=== PATIENT | male | born 1980 | race Caucasian/White ===

== ENCOUNTER 2018-12-11 04:04 | Observation (INO) | payer BC ==
[2018-12-11] MEDS ORDERED: Sodium Chloride 0.9% 1000 ML 1,000 ML IV STA ×2 (04:15→05:04)
[2018-12-11] MEDS ORDERED: MORPHINE SULFATE 4 MG INJ IV ONE ×2 (04:28→06:01)
[2018-12-11] MEDS ORDERED: Zofran 4 MG/2 ML VIAL IV ONE (04:28)
[2018-12-11] MEDS ORDERED: Zofran 4 MG/2 ML VIAL ONE (04:32)
[2018-12-11] MEDS ORDERED: MORPHINE SULFATE 4 MG INJ ONE ×2 (04:32→06:10)
[2018-12-11] MEDS ORDERED: Sodium Chloride 0.9% 1000 ML 1,000 ML ONE ×2 (04:32→05:58)
[2018-12-11 04:33] LABS: BASOPHIL % 0.6 % (0.0-0.4); Basophil (Absolute #) 0.04 (0-0.4); Eosinophil % 2.5 % (0.00-5.0); Eosinophil (Absolute #) 0.16 (0-0.5); Granulocyte Absolute (ANC) 4.85 (1.4-6.9); Hematocrit 50.2 % (42-50); Hemoglobin 17.5 gm/dl (12.5-18.0); Lymphocyte (Absolute #) 0.88 (1.0-4.6); Lymphocytes % 13.6 % (24.0-44.0); Mean Cell Volume 88.7 fl (78-100); Mean Corpuscular Hemoglobin 30.9 pg (26-32); Mean Corpuscular Hgb Concent. 34.9 g/dl (32-36); Mean Platelet Volume 10.3 fl (6-9.5); Monocyte (Absolute #) 0.54 (0.0-1.3); Monocytes % 8.3 % (0.0-12.0); Platelet Count 191 K/mm3 (150-450); Red Blood Count 5.66 M/mm3 (4.1-5.6); Red Cell Distribution Width 12.2 % (11.5-14.0); White Blood Count 6.5 K/mm3 (4.0-10.5)
--- NOTE | 2018-12-11 04:33 | ERPHSYRPT ---
- History of Present Illness Time Seen by Provider: 12/11/18 04:29 Historian: patient Exam Limitations: no limitations Patient Subjective Stated Complaint: pt is alert and oriented. pt is ambulatory with a steady gait. pt comes in with c/o lower abd and lower back pain. pt states that he has had this pain the last several days and that it has gotten progressively worse. pt states that the has had some trouble and pain while trying to move his bowels. pt states that he is only able to go a small amount and that it is difficult to go. pt states that he has has more flatulence than normal as well. pt bowel sounds normoactive x4. pt skin is pwd. no obvious trauma. pt denies difficulty urinating. Triage Nursing Assessment: see above Physician History: This is a 38-year-old white male with history of high blood pressure, diverticulitis, anxiety, depression, polycystic kidney disease, benign kidney tumor Patient arrives with complaint of lower abdominal pain radiating to his back symptoms for 2-3 days he denies any vomiting any dysuria Past medical history includes high blood pressure, diverticulitis, anxiety, depression, polycystic kidney disease, benign kidney tumor Past surgical history includes hernia repair, orthopedic surgery, patient states he's had a appendectomy Social history includes chewing tobacco denies drug or alcohol use. Timing/Duration: day(s) (2-3 days) Activities at Onset: none Quality: aching, cramping Abdominal Pain Onset Location: suprapubic, other (bilateral lower back) Pain Radiation: back (bilateral lower back) Severity of Pain-Max: moderate Severity of Pain-Current: moderate Modifying Factors: Improves With: nothing Associated Symptoms: back, No chest pain, No diaphoresis, No diarrhea, No fever/ chills, No fatigue, No headache, No heartburn, No loss of appetite, No nausea, No neck pain, No rash, No shortness of breath, No syncope, No testicular pain, No vomiting, No weakness Previous symptoms: other (patient with history of polycystic kidney disease and abdominal pain in the past) Allergies/Adverse Reactions: No Known Drug Allergies Allergy (Verified 09/17/15 16:31) Home Medications: Clonazepam [Klonopin] 2 mg PO HS 08/04/15 [History] Lisinopril 40 mg PO DAILY 08/20/15 [History] Trazodone HCl 150 mg PO HS 08/20/15 [History] Hx Tetanus, Diphtheria Vaccination/Date Given: Yes Hx Influenza Vaccination/Date Given: No Hx Pneumococcal Vaccination/Date Given: No Immunizations Up to Date: Yes - Review of Systems Constitutional: No Fever, No Chills Eyes: No Symptoms Ears, Nose, & Throat: No Symptoms Respiratory: No Cough, No Dyspnea Cardiac: No Chest Pain, No Edema, No Syncope Abdominal/Gastrointestinal: Abdominal Pain, No Nausea, No Vomiting, No Diarrhea , No Constipation, No Hematemesis, No Hematochezia, No Melena, No Dysphagia, No Appetite Changes Genitourinary Symptoms: No Dysuria Musculoskeletal: No Back Pain, No Neck Pain Skin: No Rash Neurological: No Dizziness, No Focal Weakness, No Sensory Changes Psychological: No Symptoms Endocrine: No Symptoms All Other Systems: Reviewed and Negative - Past Medical History Pertinent Past Medical History: Yes Neurological History: No Pertinent History ENT History: No Pertinent History Cardiac History: Hypertension Respiratory History: No Pertinent History Endocrine Medical History: No Pertinent History Musculoskeletal History: No Pertinent History GI Medical History: Diverticulitis, Hernia History: Other Psycho-Social History: Anxiety, Depression Male Reproductive Disorders: No Pertinent History Other Medical History: blood in urine, scope 06/2015. polycystic kidney disease. BENIGN KIDNEY TUMOR - Past Surgical History Past Surgical History: Yes Neuro Surgical History: No Pertinent History Cardiac: No Pertinent History Respiratory: No Pertinent History Gastrointestinal: Appendectomy, Hernia Repair Genitourinary: No Pertinent History, Other Musculoskeletal: Orthopedic Surgery Male Surgical History: No Pertinent History Other Surgical History: hand. hernia repair x 2, urinary scope with stent - Social History Smoking Status: Never smoker Exposure to second hand smoke: No Drug Use: none Patient Lives Alone: No - Nursing Vital Signs Nursing Vital Signs: Initial Vital Signs Pulse Rate 69 12/11/18 04:04 Respiratory Rate 18 12/11/18 04:04 Blood Pressure 140/89 12/11/18 04:04 O2 Sat by Pulse Oximetry 99 12/11/18 04:04 Pain Scale Pain Intensity 7 - Physical Exam General Appearance: no apparent distress, alert Eye Exam: PERRL/EOMI, eyes nml inspection Ears, Nose, Throat Exam: normal ENT inspection, pharynx normal, moist mucous membranes Neck Exam: normal inspection, non-tender, supple, full range of motion Respiratory Exam: normal breath sounds, lungs clear, No respiratory distress Cardiovascular Exam: regular rate/rhythm, normal heart sounds, capillary refill <2 sec Gastrointestinal/Abdomen Exam: soft, normal bowel sounds, tenderness ( suprapubic tenderness) Back Exam: normal inspection, normal range of motion, No CVA tenderness, No vertebral tenderness Extremity Exam: normal inspection, normal range of motion, pelvis stable Neurologic Exam: alert, oriented x 3, cooperative, flyer builder II-XII nml as tested, normal mood/affect, nml cerebellar function, sensation nml, No motor deficits Skin Exam: normal color, warm, dry SpO2 Interpretation: normal (99%) SpO2: 99 - Course Nursing assessment & vital signs reviewed: Yes - CT Exams Abdomen/Pelvis CT Interpretation: Tele-radiologist Report (CT abdomen and pelvis: Left lower corner of mild to moderate sigmoid diverticulitis) Ordered Tests: Active Orders 24 hr Category Date Time Status IV Insertion STAT Care 12/11/18 04:15 Active ABDOMEN AND PELVIS W/0 CONTRAS [CT] Stat Exams 12/11/18 04:33 Taken AMYLASE Stat Lab 12/11/18 04:29 Completed CBC W DIFF Stat Lab 12/11/18 04:29 Completed CMP Stat Lab 12/11/18 04:29 Completed LIPASE Stat Lab 12/11/18 04:29 Completed UA W/RFX UR CULTURE Stat Lab 12/11/18 05:18 Completed Urine Triage Profile Stat Lab 12/11/18 05:18 Completed Medication Summary Generic Name Dose Route Start Last Admin Trade Name Freq PRN Reason Stop Dose Admin Levofloxacin/Dextrose 750 mg in 150 mls @ 100 mls/hr 12/11/18 06:21 Levofloxacin 750mg/150ml D5w IV 12/11/18 07:50 STAT STA Discontinued Medications Generic Name Dose Route Start Last Admin Trade Name Freq PRN Reason Stop Dose Admin Sodium Chloride 1,000 mls @ 999 mls/hr 12/11/18 04:15 12/11/18 04:35 Sodium Chloride 0.9% 1000 Ml IV 12/11/18 05:15 999 mls/hr .Q1H1M STA Administration Sodium Chloride Confirm 12/11/18 04:32 Sodium Chloride 0.9% 1000 Ml Administered 12/11/18 04:33 Dose 1,000 mls @ ud .ROUTE .STK-MED ONE Sodium Chloride 1,000 mls @ 999 mls/hr 12/11/18 05:04 12/11/18 06:03 Sodium Chloride 0.9% 1000 Ml IV 12/11/18 06:04 999 mls/hr .Q1H1M STA Administration Sodium Chloride Confirm 12/11/18 05:58 Sodium Chloride 0.9% 1000 Ml Administered 12/11/18 05:59 Dose 1,000 mls @ ud .ROUTE .STK-MED ONE Morphine Sulfate 4 mg 12/11/18 04:28 12/11/18 04:34 Morphine Sulfate 4 Mg Inj IV 12/11/18 04:29 4 mg STAT ONE Administration Morphine Sulfate Confirm 12/11/18 04:32 Morphine Sulfate 4 Mg Inj Administered 12/11/18 04:33 Dose 4 mg .ROUTE .STK-MED ONE Morphine Sulfate 4 mg 12/11/18 06:01 12/11/18 06:04 Morphine Sulfate 4 Mg Inj IV 12/11/18 06:02 4 mg STAT ONE Administration Morphine Sulfate Confirm 12/11/18 06:10 Morphine Sulfate 4 Mg Inj Administered 12/11/18 06:11 Dose 4 mg .ROUTE .STK-MED ONE Ondansetron HCl 4 mg 12/11/18 04:28 12/11/18 04:35 Zofran 4 Mg/2 Ml Vial IV 12/11/18 04:29 4 mg STAT ONE Administration Ondansetron HCl Confirm 12/11/18 04:32 Zofran 4 Mg/2 Ml Vial Administered 12/11/18 04:33 Dose 4 mg .ROUTE .STK-MED ONE Lab/Rad Data: Laboratory Result Diagrams 12/11/18 04:29 12/11/18 04:29 Laboratory Results 12/11/18 12/11/18 12/11/18 Range/Units 05:18 05:18 04:29 WBC (4.0-10.5) K/mm3 RBC (4.1-5.6) M/mm3 Hgb (12.5-18.0) gm/dl Hct (42-50) % MCV (78-100) fl MCH (26-32) pg MCHC (32-36) g/dl RDW (11.5-14.0) % Plt Count (150-450) K/mm3 MPV (6-9.5) fl Gran % (36.0-66.0) % Eos # (Auto) (0-0.5) Absolute Lymphs (auto) (1.0-4.6) Absolute Monos (auto) (0.0-1.3) Lymphocytes % (24.0-44.0) % Monocytes % (0.0-12.0) % Eosinophils % (0.00-5.0) % Basophils % (0.0-0.4) % Absolute Granulocytes (1.4-6.9) Basophils # (0-0.4) Sodium 138 (137-145) mmol/L Potassium 3.9 (3.5-5.1) mmol/L Chloride 102 (98-107) mmol/L Carbon Dioxide 29 (22-30) mmol/L Anion Gap 10.9 (5-15) MEQ/L BUN 22 H (9-20) mg/dL Creatinine 1.36 H (0.66-1.25) mg/dL Estimated GFR > 60.0 ML/MIN Glucose 112 H (74-106) mg/dL Calcium 9.6 (8.4-10.2) mg/dL Total Bilirubin 1.00 (0.2-1.3) mg/dL AST 19 (17-59) U/L ALT 17 (0-50) U/L Alkaline Phosphatase 65 (38-126) U/L Serum Total Protein 7.5 (6.3-8.2) g/dL Albumin 4.5 (3.5-5.0) g/dL Amylase 77 (30-110) U/L Lipase 147 (23-300) U/L Urine Color YELLOW (YELLOW) Urine Appearance CLEAR (CLEAR) Urine pH 5.0 (5-6) Ur Specific [place] 1.020 (1.005-1.025) Urine Protein NEGATIVE (Negative) Urine Ketones NEGATIVE (NEGATIVE) Urine Blood NEGATIVE (0-5) Fredo/ul Urine Nitrite NEGATIVE (NEGATIVE) Urine Bilirubin NEGATIVE (NEGATIVE) Urine Urobilinogen 2 (0-1) mg/dL Ur Leukocyte Esterase NEGATIVE (NEGATIVE) Urine WBC (Auto) NONE (0-5) /HPF Urine RBC (Auto) NONE (0-2) /HPF U Epithel Cells (Auto) NONE (FEW) /HPF Urine Bacteria (Auto) NONE SEEN (NEGATIVE) /HPF Urine Mucus (Auto) SLIGHT (NEGATIVE) /HPF Urine Culture Reflexed NO (NO) Urine Glucose NEGATIVE (NEGATIVE) mg/dL Urine Opiates Level NEGATIVE (NEGATIVE) Ur Methadone NEGATIVE (NEGATIVE) Urine Barbiturates NEGATIVE (NEGATIVE) Ur Phencyclidine (PCP) NEGATIVE (NEGATIVE) Urine Amphetamine NEGATIVE (NEGATIVE) U Benzodiazepine Level NEGATIVE (NEGATIVE) Urine Cocaine NEGATIVE (NEGATIVE) Urine Marijuana (THC) NEGATIVE (NEGATIVE) 12/11/18 Range/Units 04:29 WBC 6.5 (4.0-10.5) K/mm3 RBC 5.66 H (4.1-5.6) M/mm3 Hgb 17.5 (12.5-18.0) gm/dl Hct 50.2 H (42-50) % MCV 88.7 (78-100) fl MCH 30.9 (26-32) pg MCHC 34.9 (32-36) g/dl RDW 12.2 (11.5-14.0) % Plt Count 191 (150-450) K/mm3 MPV 10.3 H (6-9.5) fl Gran % 75.0 H (36.0-66.0) % Eos # (Auto) 0.16 (0-0.5) Absolute Lymphs (auto) 0.88 L (1.0-4.6) Absolute Monos (auto) 0.54 (0.0-1.3) Lymphocytes % 13.6 L (24.0-44.0) % Monocytes % 8.3 (0.0-12.0) % Eosinophils % 2.5 (0.00-5.0) % Basophils % 0.6 (0.0-0.4) % Absolute Granulocytes 4.85 (1.4-6.9) Basophils # 0.04 (0-0.4) Sodium (137-145) mmol/L Potassium (3.5-5.1) mmol/L Chloride (98-107) mmol/L Carbon Dioxide (22-30) mmol/L Anion Gap (5-15) MEQ/L BUN (9-20) mg/dL Creatinine (0.66-1.25) mg/dL Estimated GFR ML/MIN Glucose (74-106) mg/dL Calcium (8.4-10.2) mg/dL Total Bilirubin (0.2-1.3) mg/dL AST (17-59) U/L ALT (0-50) U/L Alkaline Phosphatase (38-126) U/L Serum Total Protein (6.3-8.2) g/dL Albumin (3.5-5.0) g/dL Amylase (30-110) U/L Lipase (23-300) U/L Urine Color (YELLOW) Urine Appearance (CLEAR) Urine pH (5-6) Ur Specific [place] (1.005-1.025) Urine Protein (Negative) Urine Ketones (NEGATIVE) Urine Blood (0-5) Fredo/ul Urine Nitrite (NEGATIVE) Urine Bilirubin (NEGATIVE) Urine Urobilinogen (0-1) mg/dL Ur Leukocyte Esterase (NEGATIVE) Urine WBC (Auto) (0-5) /HPF Urine RBC (Auto) (0-2) /HPF U Epithel Cells (Auto) (FEW) /HPF Urine Bacteria (Auto) (NEGATIVE) /HPF Urine Mucus (Auto) (NEGATIVE) /HPF Urine Culture Reflexed (NO) Urine Glucose (NEGATIVE) mg/dL Urine Opiates Level (NEGATIVE) Ur Methadone (NEGATIVE) Urine Barbiturates (NEGATIVE) Ur Phencyclidine (PCP) (NEGATIVE) Urine Amphetamine (NEGATIVE) U Benzodiazepine Level (NEGATIVE) Urine Cocaine (NEGATIVE) Urine Marijuana (THC) (NEGATIVE) - Progress Progress: improved Progress Note: 12/11/18 06:22 Patient with mild/moderate sigmoid diverticulosis on CT abdomen Patient still with pain in his received normal saline 1 L morphine 4 mg IV x2 and Zofran. Discuss case with Dr. Triplett will place patient on observation start patient on Levaquin and Flagyl continue IV morphine. . - Departure Departure Disposition: Observation Clinical Impression: Diverticulitis Abdominal pain Qualifiers: Abdominal location: left lower quadrant Qualified Code(s): R10.32 - Left lower quadrant pain Condition: Fair Critical Care Time: No Referrals: BRANDIN MARTELL NP [Primary Care Provider] -
[2018-12-11 05:00] LABS: ALBUMIN 4.5 g/dL (3.5-5.0); ALKALINE PHOSPHATASE 65 U/L (38-126); AMYLASE 77 U/L (30-110); ANION GAP 10.9 MEQ/L (5-15); BLOOD UREA NITROGEN 22 mg/dL (9-20); CHLORIDE 102 mmol/L (98-107); Calcium 9.6 mg/dL (8.4-10.2); Carbon Dioxide 29 mmol/L (22-30); Creatinine 1 1.36 mg/dL (0.66-1.25); Glucose 112 mg/dL (74-106); LIPASE 147 U/L (23-300); Potassium 3.9 mmol/L (3.5-5.1); SGOT/AST 19 U/L (17-59); SGPT/ALT 17 U/L (0-50); SODIUM 138 mmol/L (137-145); Total Protein 7.5 g/dL (6.3-8.2)
[2018-12-11 05:24] LABS: Appearance CLEAR (CLEAR); Bilirubin NEGATIVE (NEGATIVE); Blood NEGATIVE Ery/ul (0-5); Glucose NEGATIVE (NEGATIVE); Ketones NEGATIVE (NEGATIVE); Leukocyte Esterase NEGATIVE (NEGATIVE); Mucus SLIGHT /HPF (NEGATIVE); Nitrite NEGATIVE (NEGATIVE); Protein,Urine Dip NEGATIVE (Negative); Urobilinogen 2 mg/dL (0-1)
[2018-12-11 05:36] LABS: Bacteria NONE SEEN /HPF (NEGATIVE)
[2018-12-11 05:39] LABS: Amphetamine,Urine NEGATIVE (NEGATIVE); Barbiturate,Urine NEGATIVE (NEGATIVE); Benzodiazepine,Urine NEGATIVE (NEGATIVE); Cocaine,Urine NEGATIVE (NEGATIVE); Methadone,Urine NEGATIVE (NEGATIVE); Opiate,Urine NEGATIVE (NEGATIVE); PCP,Urine NEGATIVE (NEGATIVE); THC,Urine NEGATIVE (NEGATIVE)
[2018-12-11] MEDS ORDERED: LEVOFLOXACIN 750MG/150ML D5W 750 MG/150 ML BAG IV STA (06:21)
[2018-12-11] MEDS ORDERED: LEVOFLOXACIN 750MG/150ML D5W 750 MG/150 ML BAG IV ONE (06:34)
[2018-12-11] MEDS ORDERED: MORPHINE SULFATE 4 MG INJ IV PRN (07:15)
[2018-12-11] MEDS ORDERED: Phenergan 25 MG INJ IM PRN (07:15)
[2018-12-11] MEDS: LEVOFLOXACIN 750MG/150ML D5W 750 MG/150 ML BAG IV SCH (07:30)
[2018-12-11] MEDS: Sodium Chloride 0.9% 1000 ML 1,000 ML IV SCH ×2 (07:30→17:30)
--- NOTE | 2018-12-11 09:14 | PCM.HP ---
History of Present Illness - Chief Complaint Chief Complaint: llq abdominal pain History of Present Illness: is a 38 year old male who presented to the ER early this morning with severe LLQ pain, started 2 days ago and got to the point it was severe so came to ER, no fever, no vomiting, no diarrhea or blood in the stool. he has had diverticulitis in the past. - Review of Systems Constitutional: No Fever, No Chills Eyes: No Symptoms Respiratory: No Cough, No Short Of Breath Cardiac: No Chest Pain, No Edema, No Syncope Abdominal/Gastrointestinal: Abdominal Pain, No Nausea, No Vomiting, No Diarrhea , No Constipation Genitourinary Symptoms: No Dysuria Skin: No Rash All Other Systems: Reviewed and Negative Medications & Allergies Home Medications: Home Medication List Clonazepam [Klonopin] 2 mg PO HS 08/04/15 [History Confirmed 12/11/18] Lisinopril 40 mg PO DAILY 08/20/15 [History Confirmed 12/11/18] Trazodone HCl 150 mg PO HS 08/20/15 [History Confirmed 12/11/18] Allergies/Adverse Reactions: Allergies Allergy/AdvReac Type Severity Reaction Status Date / Time No Known Drug Allergies Allergy Verified 09/17/15 16:31 - Past Medical History Past Medical History: Yes Neurological History: No Pertinent History ENT History: No Pertinent History Cardiac History: Hypertension Respiratory History: No Pertinent History Endocrine Medical History: No Pertinent History Musculoskelatal History: No Pertinent History GI Medical History: Diverticulitis, Hernia History: Other Pyscho-Social History: Anxiety, Depression Male Reproductive Disorders: No Pertinent History Comment: blood in urine, scope 06/2015. polycystic kidney disease. BENIGN KIDNEY TUMOR. C-DIFF - Past Surgical History Past Surgical History: Yes Neuro Surgical History: No Pertinent History Cardiac History: No Pertinent History Respiratory Surgery: No Pertinent History GI Surgical History: Appendectomy, Hernia Repair Genitourinary Surgical Hx: No Pertinent History, Other Musculskeletal Surgical Hx: Orthopedic Surgery Male Surgical History: No Pertinent History Other Surgical History: hand. hernia repair x 2, urinary scope with stent - Social History Smoking Status: Never smoker Exposure to second hand smoke: No Alcohol: Rarely Drug Use: none - Physical Exam Vital Signs: Vital Signs - 24 hr Temp Pulse Resp BP Pulse Ox 12/11/18 07:15 97.6 F 86 18 129/78 98 12/11/18 06:24 99 12/11/18 05:50 72 17 113/59 97 12/11/18 05:44 78 18 112/77 97 12/11/18 04:54 72 18 113/59 99 12/11/18 04:04 69 18 140/89 99 General Appearance: no apparent distress Neurologic Exam: alert, oriented x 3 Ears, Nose, Throat Exam: normal ENT inspection, TMs normal, pharynx normal, moist mucous membranes Respiratory Exam: normal breath sounds, lungs clear, No respiratory distress Cardiovascular Exam: regular rate/rhythm, normal heart sounds, normal peripheral pulses Gastrointestinal/Abdomen Exam: tenderness (LLQ), No distention, No guarding, No rebound Extremity Exam: normal inspection, normal range of motion, pelvis stable Skin Exam: normal color, warm, dry, No rash Results - Labs Lab/Micro Results: Lab Results-Last 24 Hours 12/11/18 12/11/18 12/11/18 Range/Units 04:29 04:29 05:18 WBC 6.5 (4.0-10.5) K/mm3 RBC 5.66 H (4.1-5.6) M/mm3 Hgb 17.5 (12.5-18.0) gm/dl Hct 50.2 H (42-50) % MCV 88.7 (78-100) fl MCH 30.9 (26-32) pg MCHC 34.9 (32-36) g/dl RDW 12.2 (11.5-14.0) % Plt Count 191 (150-450) K/mm3 MPV 10.3 H (6-9.5) fl Gran % 75.0 H (36.0-66.0) % Eos # (Auto) 0.16 (0-0.5) Absolute Lymphs (auto) 0.88 L (1.0-4.6) Absolute Monos (auto) 0.54 (0.0-1.3) Lymphocytes % 13.6 L (24.0-44.0) % Monocytes % 8.3 (0.0-12.0) % Eosinophils % 2.5 (0.00-5.0) % Basophils % 0.6 (0.0-0.4) % Absolute Granulocytes 4.85 (1.4-6.9) Basophils # 0.04 (0-0.4) Sodium 138 (137-145) mmol/L Potassium 3.9 (3.5-5.1) mmol/L Chloride 102 (98-107) mmol/L Carbon Dioxide 29 (22-30) mmol/L Anion Gap 10.9 (5-15) MEQ/L BUN 22 H (9-20) mg/dL Creatinine 1.36 H (0.66-1.25) mg/dL Estimated GFR > 60.0 ML/MIN Glucose 112 H (74-106) mg/dL Calcium 9.6 (8.4-10.2) mg/dL Total Bilirubin 1.00 (0.2-1.3) mg/dL AST 19 (17-59) U/L ALT 17 (0-50) U/L Alkaline Phosphatase 65 (38-126) U/L Serum Total Protein 7.5 (6.3-8.2) g/dL Albumin 4.5 (3.5-5.0) g/dL Amylase 77 (30-110) U/L Lipase 147 (23-300) U/L Urine Color YELLOW (YELLOW) Urine Appearance CLEAR (CLEAR) Urine pH 5.0 (5-6) Ur Specific [place] 1.020 (1.005-1.025) Urine Protein NEGATIVE (Negative) Urine Ketones NEGATIVE (NEGATIVE) Urine Blood NEGATIVE (0-5) Fredo/ul Urine Nitrite NEGATIVE (NEGATIVE) Urine Bilirubin NEGATIVE (NEGATIVE) Urine Urobilinogen 2 (0-1) mg/dL Ur Leukocyte Esterase NEGATIVE (NEGATIVE) Urine WBC (Auto) NONE (0-5) /HPF Urine RBC (Auto) NONE (0-2) /HPF U Epithel Cells (Auto) NONE (FEW) /HPF Urine Bacteria (Auto) NONE SEEN (NEGATIVE) /HPF Urine Mucus (Auto) SLIGHT (NEGATIVE) /HPF Urine Culture Reflexed NO (NO) Urine Glucose NEGATIVE (NEGATIVE) mg/dL Urine Opiates Level (NEGATIVE) Ur Methadone (NEGATIVE) Urine Barbiturates (NEGATIVE) Ur Phencyclidine (PCP) (NEGATIVE) Urine Amphetamine (NEGATIVE) U Benzodiazepine Level (NEGATIVE) Urine Cocaine (NEGATIVE) Urine Marijuana (THC) (NEGATIVE) 12/11/18 Range/Units 05:18 WBC (4.0-10.5) K/mm3 RBC (4.1-5.6) M/mm3 Hgb (12.5-18.0) gm/dl Hct (42-50) % MCV (78-100) fl MCH (26-32) pg MCHC (32-36) g/dl RDW (11.5-14.0) % Plt Count (150-450) K/mm3 MPV (6-9.5) fl Gran % (36.0-66.0) % Eos # (Auto) (0-0.5) Absolute Lymphs (auto) (1.0-4.6) Absolute Monos (auto) (0.0-1.3) Lymphocytes % (24.0-44.0) % Monocytes % (0.0-12.0) % Eosinophils % (0.00-5.0) % Basophils % (0.0-0.4) % Absolute Granulocytes (1.4-6.9) Basophils # (0-0.4) Sodium (137-145) mmol/L Potassium (3.5-5.1) mmol/L Chloride (98-107) mmol/L Carbon Dioxide (22-30) mmol/L Anion Gap (5-15) MEQ/L BUN (9-20) mg/dL Creatinine (0.66-1.25) mg/dL Estimated GFR ML/MIN Glucose (74-106) mg/dL Calcium (8.4-10.2) mg/dL Total Bilirubin (0.2-1.3) mg/dL AST (17-59) U/L ALT (0-50) U/L Alkaline Phosphatase (38-126) U/L Serum Total Protein (6.3-8.2) g/dL Albumin (3.5-5.0) g/dL Amylase (30-110) U/L Lipase (23-300) U/L Urine Color (YELLOW) Urine Appearance (CLEAR) Urine pH (5-6) Ur Specific [place] (1.005-1.025) Urine Protein (Negative) Urine Ketones (NEGATIVE) Urine Blood (0-5) Fredo/ul Urine Nitrite (NEGATIVE) Urine Bilirubin (NEGATIVE) Urine Urobilinogen (0-1) mg/dL Ur Leukocyte Esterase (NEGATIVE) Urine WBC (Auto) (0-5) /HPF Urine RBC (Auto) (0-2) /HPF U Epithel Cells (Auto) (FEW) /HPF Urine Bacteria (Auto) (NEGATIVE) /HPF Urine Mucus (Auto) (NEGATIVE) /HPF Urine Culture Reflexed (NO) Urine Glucose (NEGATIVE) mg/dL Urine Opiates Level NEGATIVE (NEGATIVE) Ur Methadone NEGATIVE (NEGATIVE) Urine Barbiturates NEGATIVE (NEGATIVE) Ur Phencyclidine (PCP) NEGATIVE (NEGATIVE) Urine Amphetamine NEGATIVE (NEGATIVE) U Benzodiazepine Level NEGATIVE (NEGATIVE) Urine Cocaine NEGATIVE (NEGATIVE) Urine Marijuana (THC) NEGATIVE (NEGATIVE) - Radiology Impressions Radiology Exams & Impressions: Radiology Procedures Category Date Time Status ABDOMEN AND PELVIS W/0 CONTRAS [CT] Stat Exams 12/11/18 04:33 Taken Assessment/Plan (1) Diverticulitis Current Visit: Yes Status: Acute Assessment & Plan: continue levaquin and flagyl, clear liquids. pain control and will advance diet as tolerated Code(s): K57.92 - DVTRCLI OF INTEST, PART UNSP, W/O PERF OR ABSCESS W/O BLEED
--- NOTE | 2018-12-11 09:41 | XRAY ---
Indication: Abdomen pain 2 days. Multiple contiguous axial images obtained through the abdomen and pelvis without contrast as ordered. Comparison: May 10, 2016. Lung bases are clear. Heart is not enlarged. Stomach is mildly fluid distended. Noncontrasted stomach and bowel loops appear nonobstructed. Again previous appendectomy. There remains diffuse scattered colonic diverticulosis with new mild focus of diverticulitis in the distal descending/proximal sigmoid colon. No free fluid/air. Stable bilateral polycystic kidneys with a few again appearing hemorrhagic/proteinaceous. Also stable nonobstructing bilateral renal micro-calculi/calcifications. No hydronephrosis or hydroureter. Stable hepatic cysts. Remaining liver, gallbladder, pancreas, spleen, adrenal glands, bladder, and aorta appear unremarkable for noncontrast exam. Osseous structures intact. Impression: 1. Again colonic diverticulosis with new mild diverticulitis in the distal descending/proximal sigmoid colon. No complications. 2. Stable polycystic kidneys with calculi/calcifications and hepatic cysts. Comment: Preliminary interpretation was made by [facility]. No discrepancy. CT DI 18.08
[2018-12-11] MEDS ORDERED: NON-FORMULARY ITEM (Lisinopril [Lisinopril] 40 MG) PO SCH (10:00)
[2018-12-11] MEDS: DILAUDID 2 MG INJECTION IV PRN ×3 (10:12→20:08)
[2018-12-11] MEDS: FLAGYL 500 MG IVPB 500 MG/100 ML BAG IV SCH ×3 (11:56→23:49)
[2018-12-11] MEDS ORDERED: NON-FORMULARY ITEM (Trazodone Hcl [Trazodone Hcl] 150 MG) PO SCH (22:00)
[2018-12-12] MEDS: Desyrel 150 MG PO SCH (00:29)
[2018-12-12] MEDS: DILAUDID 2 MG INJECTION IV PRN ×5 (00:29→20:48)
[2018-12-12] MEDS: Sodium Chloride 0.9% 1000 ML 1,000 ML IV SCH ×2 (03:19→15:01)
[2018-12-12] MEDS: FLAGYL 500 MG IVPB 500 MG/100 ML BAG IV SCH ×3 (05:47→18:10)
[2018-12-12 05:55] LABS: BASOPHIL % 0.8 % (0.0-0.4); Basophil (Absolute #) 0.03 (0-0.4); Eosinophil % 2.8 % (0.00-5.0); Eosinophil (Absolute #) 0.11 (0-0.5); Granulocyte Absolute (ANC) 2.45 (1.4-6.9); Granulocytes % 63.5 % (36.0-66.0); Hematocrit 44.4 % (42-50); Lymphocyte (Absolute #) 0.89 (1.0-4.6); Lymphocytes % 23.1 % (24.0-44.0); Mean Cell Volume 89.7 fl (78-100); Mean Corpuscular Hemoglobin 30.3 pg (26-32); Mean Corpuscular Hgb Concent. 33.8 g/dl (32-36); Monocyte (Absolute #) 0.38 (0.0-1.3); Monocytes % 9.8 % (0.0-12.0); Platelet Count 170 K/mm3 (150-450); Red Blood Count 4.95 M/mm3 (4.1-5.6); White Blood Count 3.9 K/mm3 (4.0-10.5)
[2018-12-12 06:07] LABS: ALBUMIN 3.5 g/dL (3.5-5.0); ALKALINE PHOSPHATASE 52 U/L (38-126); ANION GAP 8.8 MEQ/L (5-15); BLOOD UREA NITROGEN 12 mg/dL (9-20); CHLORIDE 105 mmol/L (98-107); Calcium 8.7 mg/dL (8.4-10.2); Carbon Dioxide 28 mmol/L (22-30); Creatinine 1 1.15 mg/dL (0.66-1.25); Glucose 88 mg/dL (74-106); Potassium 4.3 mmol/L (3.5-5.1); SGOT/AST 17 U/L (17-59); SGPT/ALT 13 U/L (0-50); SODIUM 138 mmol/L (137-145); Total Protein 6.3 g/dL (6.3-8.2)
--- NOTE | 2018-12-12 09:44 | PCM.NOTE ---
Date and Time: 12/12/18942 Subjective Assessment: patient still having soreness in LLQ, tolerating clears without issue. c/o some gas, thinks pain has improved some Objective Exam General Appearance: no apparent distress, alert Skin Exam: normal color, warm, dry Respiratory Exam: normal breath sounds, lungs clear, No respiratory distress Cardiovascular Exam: regular rate/rhythm, normal heart sounds Gastrointestinal/Abdomen Exam: soft, normal bowel sounds, tenderness (LLQ) Extremity Exam: normal inspection, normal range of motion OBJECTIVE DATA Vital Signs: Vital Signs - 24 hr Temp Pulse Resp BP Pulse Ox 12/12/18 07:45 97 12/12/18 07:00 97.8 F 84 17 129/71 97 12/12/18 03:43 97.4 F 73 16 105/72 94 L 12/11/18 23:00 98.2 F 80 16 133/81 96 12/11/18 20:38 94 L 12/11/18 19:18 98.7 F 82 17 134/88 97 12/11/18 17:22 99 12/11/18 15:00 98.7 F 77 16 135/88 99 12/11/18 11:15 98.1 F 76 18 120/73 96 Pain Assessment - Last Documented Pain Intensity 5 Pain Scale Used 0-10 Pain Scale Intake and Output: Intake & Output 12/09/18 12/10/18 12/11/18 12/12/18 11:59 11:59 11:59 11:59 Intake Total 540 3730 Output Total 5150 Balance 540 -1420 Weight 86.3 kg 85.7 kg Lab Results: Lab Results-Last 24 Hours 12/12/18 12/12/18 Range/Units 05:44 05:44 WBC 3.9 L (4.0-10.5) K/mm3 RBC 4.95 (4.1-5.6) M/mm3 Hgb 15.0 (12.5-18.0) gm/dl Hct 44.4 (42-50) % MCV 89.7 (78-100) fl MCH 30.3 (26-32) pg MCHC 33.8 (32-36) g/dl RDW 12.0 (11.5-14.0) % Plt Count 170 (150-450) K/mm3 MPV 10.0 H (6-9.5) fl Gran % 63.5 (36.0-66.0) % Eos # (Auto) 0.11 (0-0.5) Absolute Lymphs (auto) 0.89 L (1.0-4.6) Absolute Monos (auto) 0.38 (0.0-1.3) Lymphocytes % 23.1 L (24.0-44.0) % Monocytes % 9.8 (0.0-12.0) % Eosinophils % 2.8 (0.00-5.0) % Basophils % 0.8 (0.0-0.4) % Absolute Granulocytes 2.45 (1.4-6.9) Basophils # 0.03 (0-0.4) Sodium 138 (137-145) mmol/L Potassium 4.3 (3.5-5.1) mmol/L Chloride 105 (98-107) mmol/L Carbon Dioxide 28 (22-30) mmol/L Anion Gap 8.8 (5-15) MEQ/L BUN 12 (9-20) mg/dL Creatinine 1.15 (0.66-1.25) mg/dL Estimated GFR > 60.0 ML/MIN Glucose 88 (74-106) mg/dL Calcium 8.7 (8.4-10.2) mg/dL Total Bilirubin 0.90 (0.2-1.3) mg/dL AST 17 (17-59) U/L ALT 13 (0-50) U/L Alkaline Phosphatase 52 (38-126) U/L Serum Total Protein 6.3 (6.3-8.2) g/dL Albumin 3.5 (3.5-5.0) g/dL Radiology Exams: Radiology Procedures Category Date Time Status ABDOMEN AND PELVIS W/0 CONTRAS [CT] Stat Exams 12/11/18 04:33 Completed Assessment/Plan (1) Diverticulitis Current Visit: Yes Status: Acute Assessment & Plan: continue levaquin and flagyl, advance diet. home when able to transition to po pain meds with good po intake Code(s): K57.92 - DVTRCLI OF INTEST, PART UNSP, W/O PERF OR ABSCESS W/O BLEED
[2018-12-12] MEDS: Zestril 20 MG PO SCH (09:59)
[2018-12-12] MEDS: LEVOFLOXACIN 750MG/150ML D5W 750 MG/150 ML BAG IV SCH (09:59)
[2018-12-12] MEDS: Zofran 4 MG/2 ML VIAL IV PRN ×2 (12:49→16:46)
[2018-12-13] MEDS: Desyrel 150 MG PO SCH ×2 (00:17→23:56)
[2018-12-13] MEDS: FLAGYL 500 MG IVPB 500 MG/100 ML BAG IV SCH ×5 (00:18→23:56)
[2018-12-13] MEDS: Sodium Chloride 0.9% 1000 ML 1,000 ML IV SCH ×2 (00:18→15:08)
[2018-12-13] MEDS ORDERED: Phenergan 25 MG INJ IV PRN (01:06)
[2018-12-13] MEDS: DILAUDID 2 MG INJECTION IV PRN ×4 (01:20→20:25)
[2018-12-13 05:51] LABS: BASOPHIL % 0.6 % (0.0-0.4); Basophil (Absolute #) 0.03 (0-0.4); Eosinophil % 4.3 % (0.00-5.0); Granulocyte Absolute (ANC) 2.92 (1.4-6.9); Granulocytes % 62.7 % (36.0-66.0); Hematocrit 45.3 % (42-50); Hemoglobin 15.6 gm/dl (12.5-18.0); Lymphocytes % 21.5 % (24.0-44.0); Mean Corpuscular Hemoglobin 30.6 pg (26-32); Mean Corpuscular Hgb Concent. 34.4 g/dl (32-36); Mean Platelet Volume 9.9 fl (6-9.5); Monocyte (Absolute #) 0.51 (0.0-1.3); Monocytes % 10.9 % (0.0-12.0); Platelet Count 183 K/mm3 (150-450); Red Blood Count 5.09 M/mm3 (4.1-5.6); Red Cell Distribution Width 12.1 % (11.5-14.0); White Blood Count 4.7 K/mm3 (4.0-10.5)
[2018-12-13 06:10] LABS: ANION GAP 7.5 MEQ/L (5-15); BLOOD UREA NITROGEN 15 mg/dL (9-20); CHLORIDE 104 mmol/L (98-107); Calcium 9.1 mg/dL (8.4-10.2); Carbon Dioxide 30 mmol/L (22-30); Glucose 92 mg/dL (74-106); Potassium 4.8 mmol/L (3.5-5.1); SODIUM 137 mmol/L (137-145)
--- NOTE | 2018-12-13 07:59 | PCM.NOTE ---
Date and Time: 12/13/18 0757 Subjective Assessment: patient notes improvement but still has significant pain, had nausea with po intake yesterday Objective Exam General Appearance: no apparent distress, alert Neurologic Exam: alert, oriented x 3 Skin Exam: normal color, warm, dry Cardiovascular Exam: regular rate/rhythm, normal heart sounds Gastrointestinal/Abdomen Exam: soft, tenderness (LLQ), No mass Extremity Exam: normal inspection, normal range of motion OBJECTIVE DATA Vital Signs: Vital Signs - 24 hr Temp Pulse Resp BP Pulse Ox 12/13/18 07:15 97.8 F 66 20 90/58 96 12/13/18 06:43 97 12/13/18 03:54 97.8 F 65 13 127/77 96 12/12/18 23:09 98.5 F 74 18 137/99 95 12/12/18 20:03 94 L 12/12/18 19:00 98.2 F 92 H 16 151/95 96 12/12/18 15:00 98.1 F 91 H 18 151/93 98 12/12/18 11:00 97.7 F 84 18 140/87 99 Pain Assessment - Last Documented Pain Intensity 6 Pain Scale Used 0-10 Pain Scale Intake and Output: Intake & Output 12/10/18 12/11/18 12/12/18 12/13/18 11:59 11:59 11:59 11:59 Intake Total 540 3730 4317 Output Total 5150 3550 Balance 540 -1420 767 Weight 86.3 kg 85.7 kg 85.7 kg Lab Results: Lab Results-Last 24 Hours 12/13/18 12/13/18 Range/Units 05:34 05:34 WBC 4.7 (4.0-10.5) K/mm3 RBC 5.09 (4.1-5.6) M/mm3 Hgb 15.6 (12.5-18.0) gm/dl Hct 45.3 (42-50) % MCV 89.0 (78-100) fl MCH 30.6 (26-32) pg MCHC 34.4 (32-36) g/dl RDW 12.1 (11.5-14.0) % Plt Count 183 (150-450) K/mm3 MPV 9.9 H (6-9.5) fl Gran % 62.7 (36.0-66.0) % Eos # (Auto) 0.20 (0-0.5) Absolute Lymphs (auto) 1.00 (1.0-4.6) Absolute Monos (auto) 0.51 (0.0-1.3) Lymphocytes % 21.5 L (24.0-44.0) % Monocytes % 10.9 (0.0-12.0) % Eosinophils % 4.3 (0.00-5.0) % Basophils % 0.6 (0.0-0.4) % Absolute Granulocytes 2.92 (1.4-6.9) Basophils # 0.03 (0-0.4) Sodium 137 (137-145) mmol/L Potassium 4.8 (3.5-5.1) mmol/L Chloride 104 (98-107) mmol/L Carbon Dioxide 30 (22-30) mmol/L Anion Gap 7.5 (5-15) MEQ/L BUN 15 (9-20) mg/dL Creatinine 1.30 H (0.66-1.25) mg/dL Estimated GFR > 60.0 ML/MIN Glucose 92 (74-106) mg/dL Calcium 9.1 (8.4-10.2) mg/dL Assessment/Plan (1) Diverticulitis Current Visit: Yes Status: Acute Assessment & Plan: continue levaquin/flagyl, slowly improving clinically. labs look good Code(s): K57.92 - DVTRCLI OF INTEST, PART UNSP, W/O PERF OR ABSCESS W/O BLEED
[2018-12-13] MEDS: LEVOFLOXACIN 750MG/150ML D5W 750 MG/150 ML BAG IV SCH (09:30)
[2018-12-13] MEDS: Zestril 20 MG PO SCH ×2 (09:37→19:59)
[2018-12-14] MEDS: Sodium Chloride 0.9% 1000 ML 1,000 ML IV SCH (02:14)
[2018-12-14] MEDS: DILAUDID 2 MG INJECTION IV PRN (03:48)
[2018-12-14] MEDS: FLAGYL 500 MG IVPB 500 MG/100 ML BAG IV SCH (05:44)
[2018-12-14 06:00] LABS: Basophil (Absolute #) 0.04 (0-0.4); Eosinophil % 4.8 % (0.00-5.0); Eosinophil (Absolute #) 0.19 (0-0.5); Granulocyte Absolute (ANC) 2.42 (1.4-6.9); Granulocytes % 60.9 % (36.0-66.0); Hematocrit 43.6 % (42-50); Lymphocyte (Absolute #) 0.94 (1.0-4.6); Lymphocytes % 23.7 % (24.0-44.0); Mean Cell Volume 87.9 fl (78-100); Mean Corpuscular Hemoglobin 30.2 pg (26-32); Mean Corpuscular Hgb Concent. 34.4 g/dl (32-36); Mean Platelet Volume 9.9 fl (6-9.5); Monocyte (Absolute #) 0.38 (0.0-1.3); Monocytes % 9.6 % (0.0-12.0); Platelet Count 189 K/mm3 (150-450); Red Blood Count 4.96 M/mm3 (4.1-5.6); Red Cell Distribution Width 11.9 % (11.5-14.0)
[2018-12-14 06:49] LABS: ALBUMIN 3.4 g/dL (3.5-5.0); ALKALINE PHOSPHATASE 53 U/L (38-126); ANION GAP 8.8 MEQ/L (5-15); BLOOD UREA NITROGEN 18 mg/dL (9-20); CHLORIDE 105 mmol/L (98-107); Calcium 8.8 mg/dL (8.4-10.2); Carbon Dioxide 27 mmol/L (22-30); Creatinine 1 1.22 mg/dL (0.66-1.25); Glucose 93 mg/dL (74-106); SGOT/AST 17 U/L (17-59); SGPT/ALT 12 U/L (0-50); SODIUM 136 mmol/L (137-145); Total Protein 6.4 g/dL (6.3-8.2)
[2018-12-14 07:22] VITALS: BP 101/64; PULSE 63; O2SAT 97
--- NOTE | 2018-12-14 08:26 | PCM.DS ---
Discharge Summary Date of Admission: 12/11/18 06:50 Admitting Physician: MANOJ KIM Primary Care Provider: BRANDIN MARTELL Allergies Allergies No Known Drug Allergies Allergy (Verified 09/17/15 16:31) Hospital Summary - Hospital Course Hospital Course: patient arrived with llq pain, diverticulitis on ct. improved with levaquin and flagyl, tolerating po intake and doing much better now. still has some pain but overall improved - Vitals & Intake/Output Vital Signs: Vital Signs Temperature 98.3 F 12/14/18 07:21 Pulse Rate 63 12/14/18 07:21 Respiratory Rate 17 12/14/18 07:21 Blood Pressure 101/64 12/14/18 07:21 O2 Sat by Pulse Oximetry 97 12/14/18 07:21 Oxygen-Last Documented O2 Percentage 1 Liter = 24% Intake & Output: Intake & Output 12/11/18 12/12/18 12/13/18 12/14/18 11:59 11:59 11:59 11:59 Intake Total 540 3730 4557 4059 Output Total 5150 3550 2600 Balance 540 -1420 1007 1459 Weight 86.3 kg 85.7 kg 85.7 kg 84.8 kg - Lab Result Diagrams: 12/14/18 05:33 12/14/18 05:33 Lab Results-Last 24 Hrs: Lab Results-Last 24 Hours 12/14/18 12/14/18 Range/Units 05:33 05:33 WBC 4.0 (4.0-10.5) K/mm3 RBC 4.96 (4.1-5.6) M/mm3 Hgb 15.0 (12.5-18.0) gm/dl Hct 43.6 (42-50) % MCV 87.9 (78-100) fl MCH 30.2 (26-32) pg MCHC 34.4 (32-36) g/dl RDW 11.9 (11.5-14.0) % Plt Count 189 (150-450) K/mm3 MPV 9.9 H (6-9.5) fl Gran % 60.9 (36.0-66.0) % Eos # (Auto) 0.19 (0-0.5) Absolute Lymphs (auto) 0.94 L (1.0-4.6) Absolute Monos (auto) 0.38 (0.0-1.3) Lymphocytes % 23.7 L (24.0-44.0) % Monocytes % 9.6 (0.0-12.0) % Eosinophils % 4.8 (0.00-5.0) % Basophils % 1.0 (0.0-0.4) % Absolute Granulocytes 2.42 (1.4-6.9) Basophils # 0.04 (0-0.4) Sodium 136 L (137-145) mmol/L Potassium 4.0 (3.5-5.1) mmol/L Chloride 105 (98-107) mmol/L Carbon Dioxide 27 (22-30) mmol/L Anion Gap 8.8 (5-15) MEQ/L BUN 18 (9-20) mg/dL Creatinine 1.22 (0.66-1.25) mg/dL Estimated GFR > 60.0 ML/MIN Glucose 93 (74-106) mg/dL Calcium 8.8 (8.4-10.2) mg/dL Total Bilirubin 0.60 (0.2-1.3) mg/dL AST 17 (17-59) U/L ALT 12 (0-50) U/L Alkaline Phosphatase 53 (38-126) U/L Serum Total Protein 6.4 (6.3-8.2) g/dL Albumin 3.4 L (3.5-5.0) g/dL - Procedures and Test Procedures and Tests throughout Hospitalization: Therapy Orders & Screens 12/13/18 05:45 Oxygen Nasal Cannula 1 lpm Comment: Diagnosis: llq abdominal pain Discharge Exam General Appearance: no apparent distress Neurologic Exam: alert, oriented x 3 Eye Exam: PERRL, EOMI, eyes nml inspection Respiratory Exam: normal breath sounds, lungs clear, No respiratory distress Cardiovascular Exam: regular rate/rhythm, normal heart sounds Gastrointestinal/Abdomen Exam: soft, normal bowel sounds, tenderness (mild LLQ) , No distention, No guarding, No rebound Extremity Exam: normal inspection, normal range of motion Skin Exam: normal color, warm, dry Final Diagnosis/Problem List - Final Discharge Diagnosis/Problem (1) Diverticulitis Current Visit: Yes Status: Acute Assessment & Plan: home on po levaquin and flagyl Code(s): K57.92 - DVTRCLI OF INTEST, PART UNSP, W/O PERF OR ABSCESS W/O BLEED - Discharge Disposition: Home, Self-Care Condition: Good Prescriptions: New Metronidazole 500 mg [Flagyl 500 MG] 500 mg PO TID #21 tablet Levofloxacin [Levaquin] 500 mg PO DAILY #7 tablet Hydrocodone/APAP 5-325 Tab^^^ [[place] 5-325 Tablet^^^] 1 tab PO Q6HPRN PRN # 20 tablet MDD 6 PRN Reason: Pain Ondansetron ODT 4 MG [Zofran Odt 4 mg] 4 mg PO Q6H PRN PRN #10 tab.rapdis PRN Reason: Nausea Continue Clonazepam [Klonopin] 2 mg PO HS Trazodone HCl 150 mg PO HS Lisinopril 40 mg PO DAILY Follow up with: BRANDIN MRATELL NP [Primary Care Provider] - 1 Week
== END 2018-12-14 09:05 | disposition home or self-care (01) ==
LOC: ED 04:04 → MED SURG 06:50
PROVIDERS: ADMIT Family Medicine; ATTEND Family Medicine
DX: K57.32 Diverticulitis of large intestine without perforation or abscess without bleeding (principal); I10 Essential (primary) hypertension; Z79.899 Other long term (current) drug therapy
CPT/HCPCS: 36000; 36415; 74176; 80048; 80053; 80307; 81001; 82150; 83690; 85025; 93268; 94762; 96360; 96361; 96365; 96374; 96375; 96376; 99285; G0378; J1170; J1956; J2270; J2405; J2550; A9270-GY

== ENCOUNTER 2019-09-30 06:32 | Day surgery (SDC) | payer BC ==
[~2019-09-30 06:32] MED LIST: Lactated Ringers 1,000 ML IV SCH
[2019-09-30] MEDS ORDERED: DIPRIVAN 200 MG/20 ML IV ONE ×3 (08:03→08:05)
[2019-09-30 08:50] VITALS: O2SAT 100
[2019-09-30 09:10] VITALS: BP 115/73; PULSE 80
--- NOTE | 2019-10-01 08:10 | OP ---
SURGERY DATE/TIME: 09/30/2019 0800 PREOPERATIVE DIAGNOSES: 1) Hematochezia. 2) Abdominal pain. POSTOPERATIVE DIAGNOSIS: Diverticulosis. PROCEDURE: Diagnostic colonoscopy. SURGEON: Chauncey Triplett M.D. ANESTHESIA: MAC by Darren Sharma CRNA. ESTIMATED BLOOD LOSS: None. SPECIMENS: None. DESCRIPTION OF PROCEDURE: After informed written consent was obtained, the patient was taken to the endoscopy suite. He was placed in left lateral decubitus position and monitored anesthesia was assessed to desired level of consciousness. A digital rectal exam showed normal sphincter tone and no internal lesions. The scope was inserted into the rectum and sequentially the entire colonic mucosa was traversed. The level of cecum was reached and verified with direct visualization of ileocecal valve. Upon withdrawal careful mucosal inspection revealed scattered diverticula throughout the transverse, descending and sigmoid colon. There were no obvious areas of bleeding. No other appreciable abnormalities. Prep was noted to be good. Prior to withdrawal retroflexion revealed no internal lesions. The scope was removed and the patient was transferred to the recovery room in good condition.
== END 2019-09-30 09:23 | disposition home or self-care (01) ==
LOC: SDC 06:32
PROVIDERS: ATTEND Family Medicine
DX: K57.30 Diverticulosis of large intestine without perforation or abscess without bleeding (principal); K92.1 Melena; R10.9 Unspecified abdominal pain; I10 Essential (primary) hypertension; Z79.899 Other long term (current) drug therapy
CPT/HCPCS: J2704

== ENCOUNTER 2021-05-21 12:25 | Emergency (ER) | payer BC ==
[2021-05-21] MEDS ORDERED: TORAdol 30 mg Injection IV ONE (12:55)
[2021-05-21] MEDS ORDERED: Zofran 4 MG/2 ML VIAL IV ONE (12:55)
[2021-05-21] MEDS ORDERED: Sodium Chloride 0.9% 1000 ML 1,000 ML IV STA (12:55)
[2021-05-21] MEDS ORDERED: Zofran 4 MG/2 ML VIAL ONE (13:00)
[2021-05-21] MEDS ORDERED: TORAdol 30 mg Injection ONE (13:00)
[2021-05-21] MEDS ORDERED: Sodium Chloride 0.9% 1000 ML 1,000 ML ONE (13:00)
[2021-05-21 13:04] LABS: Absolute Neutrophil Ct (ANC) 2.73 (1.4-6.9); Basophil (Absolute #) 0.06 (0-0.4); Eosinophil % 3.1 % (0.00-5.0); Eosinophil (Absolute #) 0.14 (0-0.5); Hematocrit 48.7 % (42-50); Hemoglobin 16.3 gm/dl (12.5-18.0); Lymphocyte (Absolute #) 1.17 (1.0-4.6); Lymphocytes % 26.1 % (24.0-44.0); Mean Cell Volume 89.4 fl (78-100); Mean Corpuscular Hemoglobin 29.9 pg (26-32); Mean Corpuscular Hgb Concent. 33.5 g/dl (32-36); Monocyte (Absolute #) 0.38 (0.0-1.3); Monocytes % 8.5 % (0.0-12.0); Platelet Count 216 K/mm3 (150-450); Red Blood Count 5.45 M/mm3 (4.1-5.6); Red Cell Distribution Width 12.2 % (11.5-14.0); White Blood Count 4.5 K/mm3 (4.0-10.5)
[2021-05-21 13:05] LABS: Appearance CLEAR (CLEAR); Bilirubin NEGATIVE (NEGATIVE); Blood NEGATIVE Ery/ul (0-5); Glucose NEGATIVE (NEGATIVE); Ketones NEGATIVE (NEGATIVE); Leukocyte Esterase NEGATIVE (NEGATIVE); Mucus SLIGHT /HPF (NEGATIVE); Nitrite NEGATIVE (NEGATIVE); Protein,Urine Dip NEGATIVE (Negative); Specific Gravity 1.019 (1.005-1.025); Urobilinogen NEGATIVE mg/dL (0-1)
[2021-05-21 13:49] LABS: ALBUMIN 4.4 g/dL (3.5-5.0); ALKALINE PHOSPHATASE 67 U/L (38-126); ANION GAP 12.2 MEQ/L (5-15); BLOOD UREA NITROGEN 24 mg/dL (9-20); CHLORIDE 102 mmol/L (98-107); Calcium 9.3 mg/dL (8.4-10.2); Carbon Dioxide 27 mmol/L (22-30); Creatinine 1 1.26 mg/dL (0.66-1.25); EST GLOMERULAR FILTRATION RATE > 60.0 ML/MIN; Glucose 93 mg/dL (74-106); LIPASE 215 U/L (23-300); SGOT/AST 24 U/L (17-59); SGPT/ALT 27 U/L (0-50); SODIUM 138 mmol/L (137-145); Total Protein 7.2 g/dL (6.3-8.2)
--- NOTE | 2021-05-21 14:44 | XRAY ---
Indication: Abdomen pain. Intermittent fever. History of polycystic kidney disease. Multiple contiguous axial images obtained through the abdomen and pelvis using 80 cc Isovue 370 contrast. Comparison: December 11, 2018. Lung bases demonstrates mild dependent atelectasis. No infiltrate or effusion. Heart is not enlarged. Noncontrasted stomach and bowel loops nonobstructed again with appendectomy. There remains diffuse scattered colonic diverticulosis but no diverticulitis. No free fluid/air. Stable bilateral polycystic kidneys, benign left renal cortical microcalcification, and multiple hepatic cysts. Remaining liver, gallbladder, pancreas, spleen, adrenal glands, kidneys, ureters, bladder, and aorta are unremarkable. No pathologic retroperitoneal lymphadenopathy. Osseous structures intact. Impression: 1. Again diffuse colonic diverticulosis, polycystic kidneys, benign left renal microcalcification, and hepatic cysts. 2. Remaining CT abdomen/pelvis with contrast exam is negative.
--- NOTE | 2021-05-21 14:51 | ERPHSYRPT ---
- History of Present Illness Time Seen by Provider: 05/21/21 12:50 Historian: patient Exam Limitations: no limitations Patient Subjective Stated Complaint: Abdominal pain Triage Nursing Assessment: Patient ambulated back to ED and transferred self to bed. Patient A+O X3. Patient's skin pink, warm and dry. Patient complains of lower abdominal pain 8/10 that started on , but has gotten worse. Patient complains of N/V. Rebound tenderness noted to RLQ. Abdomen soft and round. Physician History: Patient is a 40-year-old male presents to our ED with complaints of periumbilical pain. Pain started yesterday. Pain continued on into today. Pain described as an ache that is localized. No radiation. Pain worse with palpation to the abdomen. Pain improved with rest. No trauma. No fever. Patient states he has been experiencing some nausea vomiting and mild diarrhea. Patient has a history of diverticulitis. Patient has also had a appendectomy. Patient voices no other complaints or concerns at this time. Patient denies testicular pain. No testicular pain on exam. Mildly elevated BUN and creatinine. Timing/Duration: yesterday Activities at Onset: none Quality: aching Abdominal Pain Onset Location: periumbilical Pain Radiation: no radiation Severity of Pain-Max: moderate Severity of Pain-Current: mild Modifying Factors: Improves With: palpation Associated Symptoms: diarrhea, nausea, vomiting, No testicular pain Previous symptoms: same symptoms as today Allergies/Adverse Reactions: No Known Drug Allergies Allergy (Verified 05/21/21 12:33) Home Medications: Clonazepam [Klonopin] 2 mg PO HS 08/04/15 [History] Trazodone HCl 40 mg PO HS 08/20/15 [History] lisinopriL [Lisinopril] 40 mg PO DAILY 08/20/15 [History] Lactobacillus Combination No.4 [Probiotic] 1 each PO DAILY 09/27/19 [History] Hx Tetanus, Diphtheria Vaccination/Date Given: Yes Hx Influenza Vaccination/Date Given: No Hx Pneumococcal Vaccination/Date Given: No Immunizations Up to Date: Yes Travel Risk - International Travel Have you traveled outside of the country in past 3 weeks: No - Coronavirus Screening Are you exhibiting any of the following symptoms?: No Close contact with a COVID-19 positive Pt in past 14-21 Days: No - Vaccine Status Have you recieved a Covid-19 vaccination: Yes [employer]: [employer] - Review of Systems Constitutional: No Symptoms, No Fever, No Chills Eyes: No Symptoms Ears, Nose, & Throat: No Symptoms Respiratory: No Symptoms, No Cough, No Dyspnea Cardiac: No Symptoms, No Chest Pain, No Edema, No Syncope Abdominal/Gastrointestinal: No Symptoms, No Abdominal Pain, No Nausea, No Vomiting, No Diarrhea Genitourinary Symptoms: No Symptoms, No Dysuria Musculoskeletal: No Symptoms, No Back Pain, No Neck Pain Skin: No Symptoms, No Rash Neurological: No Symptoms, No Dizziness, No Focal Weakness, No Sensory Changes Psychological: No Symptoms Endocrine: No Symptoms Hematologic/Lymphatic: No Symptoms Immunological/Allergic: No Symptoms All Other Systems: Reviewed and Negative - Past Medical History Pertinent Past Medical History: Yes Neurological History: No Pertinent History ENT History: No Pertinent History Cardiac History: Hypertension Respiratory History: No Pertinent History Endocrine Medical History: No Pertinent History Musculoskeletal History: No Pertinent History GI Medical History: Diverticulitis, Hernia History: Kidney Cancer, Other Psycho-Social History: Anxiety, Depression Male Reproductive Disorders: No Pertinent History Other Medical History: blood in urine, scope 06/2015. polycystic kidney and liver disease. KIDNEY TUMOR. C-DIFF - Past Surgical History Past Surgical History: Yes Neuro Surgical History: No Pertinent History Cardiac: No Pertinent History Respiratory: No Pertinent History Gastrointestinal: Appendectomy, Hernia Repair Genitourinary: No Pertinent History, Other Musculoskeletal: Orthopedic Surgery Male Surgical History: No Pertinent History Other Surgical History: hand fx.right hand (no hdwe) hernia repair x 2, urinary scope with stent 2016 r/t polycystic kidney disease - Social History Smoking Status: Never smoker Exposure to second hand smoke: No Drug Use: none Patient Lives Alone: No - Nursing Vital Signs Nursing Vital Signs: Initial Vital Signs Temperature 98.0 F 05/21/21 12:35 Pulse Rate 76 05/21/21 12:35 Respiratory Rate 18 05/21/21 12:35 Blood Pressure 144/89 05/21/21 12:35 O2 Sat by Pulse Oximetry 98 05/21/21 12:35 Pain Scale Pain Intensity 2 - Physical Exam General Appearance: no apparent distress, alert Eye Exam: PERRL/EOMI, eyes nml inspection Ears, Nose, Throat Exam: normal ENT inspection, pharynx normal, moist mucous membranes Neck Exam: normal inspection, non-tender, supple, full range of motion Respiratory Exam: normal breath sounds, lungs clear, airway intact, No respiratory distress Cardiovascular Exam: regular rate/rhythm, normal heart sounds, normal peripheral pulses Gastrointestinal/Abdomen Exam: soft, normal bowel sounds, No tenderness, No mass Back Exam: normal inspection, normal range of motion, No CVA tenderness, No vertebral tenderness Extremity Exam: normal inspection, normal range of motion, pelvis stable Neurologic Exam: alert, oriented x 3, cooperative, normal mood/affect, sensation nml, No motor deficits Skin Exam: normal color, warm, dry Lymphatic Exam: No adenopathy SpO2 Interpretation: normal SpO2: 99 O2 Delivery: Room Air - Course Nursing assessment & vital signs reviewed: Yes - CT Exams Abdomen/Pelvis CT Interpretation: Tele-radiologist Report (Diffuse colonic diverticulosis polycystic kidneys and benign left renal microcalcification and hepatic cyst. Remaining CT abdomen pelvis with contrast is negative.) Ordered Tests: Active Orders 24 hr Category Date Time Status IV Insertion STAT Care 05/21/21 12:55 Active ABDOMEN AND PELVIS W CONTRAST [CT] Stat Exams 05/21/21 12:55 Completed CBC W DIFF Stat Lab 05/21/21 12:59 Completed CMP Stat Lab 05/21/21 12:59 Completed LIPASE Stat Lab 05/21/21 12:59 Completed TROPONIN Q3H Lab 05/21/21 12:59 Completed TROPONIN Q3H Lab 05/21/21 16:00 Ordered TROPONIN Q3H Lab 05/21/21 19:00 Ordered TROPONIN Q3H Lab 05/21/21 22:00 Ordered TROPONIN Q3H Lab 05/22/21 01:00 Ordered UA W/RFX UR CULTURE Stat Lab 05/21/21 12:59 Completed Medication Summary Discontinued Medications Generic Name Dose Route Start Last Admin Trade Name Freq PRN Reason Stop Dose Admin Sodium Chloride 1,000 mls @ 999 mls/hr 05/21/21 12:55 05/21/21 14:34 Sodium Chloride 0.9% 1000 Ml IV 05/21/21 13:55 Infused .Q1H1M STA Infusion Sodium Chloride Confirm 05/21/21 13:00 Sodium Chloride 0.9% 1000 Ml Administered 05/21/21 13:01 Dose 1,000 mls @ ud .ROUTE .STK-MED ONE Ketorolac Tromethamine 30 mg 05/21/21 12:55 05/21/21 13:05 Ketorolac Tromethamine 30 Mg/Ml Inj IV 05/21/21 12:56 30 mg STAT ONE Administration Ketorolac Tromethamine Confirm 05/21/21 13:00 Ketorolac Tromethamine 30 Mg/Ml Inj Administered 05/21/21 13:01 Dose 30 mg .ROUTE .STK-MED ONE Ondansetron HCl 4 mg 05/21/21 12:55 05/21/21 13:05 Ondansetron Hcl 4 Mg/2 Ml Vial IV 05/21/21 12:56 4 mg STAT ONE Administration Ondansetron HCl Confirm 05/21/21 13:00 Ondansetron Hcl 4 Mg/2 Ml Vial Administered 05/21/21 13:01 Dose 4 mg .ROUTE .STK-MED ONE Lab/Rad Data: Laboratory Result Diagrams 05/21/21 12:59 05/21/21 12:59 Laboratory Results 05/21/21 05/21/21 05/21/21 Range/Units 12:59 12:59 12:59 WBC 4.5 (4.0-10.5) K/mm3 RBC 5.45 (4.1-5.6) M/mm3 Hgb 16.3 (12.5-18.0) gm/dl Hct 48.7 (42-50) % MCV 89.4 (78-100) fl MCH 29.9 (26-32) pg MCHC 33.5 (32-36) g/dl RDW 12.2 (11.5-14.0) % Plt Count 216 (150-450) K/mm3 MPV 10.0 (7.5-11.0) fl Gran % 61.0 (36.0-66.0) % Eos # (Auto) 0.14 (0-0.5) Absolute Lymphs (auto) 1.17 (1.0-4.6) Absolute Monos (auto) 0.38 (0.0-1.3) Lymphocytes % 26.1 (24.0-44.0) % Monocytes % 8.5 (0.0-12.0) % Eosinophils % 3.1 (0.00-5.0) % Basophils % 1.3 (0.0-0.4) % Absolute Granulocytes 2.73 (1.4-6.9) Basophils # 0.06 (0-0.4) Sodium 138 (137-145) mmol/L Potassium 4.0 (3.5-5.1) mmol/L Chloride 102 (98-107) mmol/L Carbon Dioxide 27 (22-30) mmol/L Anion Gap 12.2 (5-15) MEQ/L BUN 24 H (9-20) mg/dL Creatinine 1.26 H (0.66-1.25) mg/dL Estimated GFR > 60.0 ML/MIN Glucose 93 (74-106) mg/dL Calcium 9.3 (8.4-10.2) mg/dL Total Bilirubin 0.80 (0.2-1.3) mg/dL AST 24 (17-59) U/L ALT 27 (0-50) U/L Alkaline Phosphatase 67 (38-126) U/L Troponin I < 0.012 (0.000-0.034) ng/mL Serum Total Protein 7.2 (6.3-8.2) g/dL Albumin 4.4 (3.5-5.0) g/dL Lipase 215 (23-300) U/L Urine Color (YELLOW) Urine Appearance (CLEAR) Urine pH (5-6) Ur Specific [place] (1.005-1.025) Urine Protein (Negative) Urine Ketones (NEGATIVE) Urine Blood (0-5) Fredo/ul Urine Nitrite (NEGATIVE) Urine Bilirubin (NEGATIVE) Urine Urobilinogen (0-1) mg/dL Ur Leukocyte Esterase (NEGATIVE) Urine WBC (Auto) (0-5) /HPF Urine RBC (Auto) (0-2) /HPF U Epithel Cells (Auto) (FEW) /HPF Urine Bacteria (Auto) (NEGATIVE) /HPF Urine Mucus (Auto) (NEGATIVE) /HPF Urine Culture Reflexed (NO) Urine Glucose (NEGATIVE) mg/dL 05/21/21 Range/Units 12:59 WBC (4.0-10.5) K/mm3 RBC (4.1-5.6) M/mm3 Hgb (12.5-18.0) gm/dl Hct (42-50) % MCV (78-100) fl MCH (26-32) pg MCHC (32-36) g/dl RDW (11.5-14.0) % Plt Count (150-450) K/mm3 MPV (7.5-11.0) fl Gran % (36.0-66.0) % Eos # (Auto) (0-0.5) Absolute Lymphs (auto) (1.0-4.6) Absolute Monos (auto) (0.0-1.3) Lymphocytes % (24.0-44.0) % Monocytes % (0.0-12.0) % Eosinophils % (0.00-5.0) % Basophils % (0.0-0.4) % Absolute Granulocytes (1.4-6.9) Basophils # (0-0.4) Sodium (137-145) mmol/L Potassium (3.5-5.1) mmol/L Chloride (98-107) mmol/L Carbon Dioxide (22-30) mmol/L Anion Gap (5-15) MEQ/L BUN (9-20) mg/dL Creatinine (0.66-1.25) mg/dL Estimated GFR ML/MIN Glucose (74-106) mg/dL Calcium (8.4-10.2) mg/dL Total Bilirubin (0.2-1.3) mg/dL AST (17-59) U/L ALT (0-50) U/L Alkaline Phosphatase (38-126) U/L Troponin I (0.000-0.034) ng/mL Serum Total Protein (6.3-8.2) g/dL Albumin (3.5-5.0) g/dL Lipase (23-300) U/L Urine Color YELLOW (YELLOW) Urine Appearance CLEAR (CLEAR) Urine pH 5.0 (5-6) Ur Specific [place] 1.019 (1.005-1.025) Urine Protein NEGATIVE (Negative) Urine Ketones NEGATIVE (NEGATIVE) Urine Blood NEGATIVE (0-5) Fredo/ul Urine Nitrite NEGATIVE (NEGATIVE) Urine Bilirubin NEGATIVE (NEGATIVE) Urine Urobilinogen NEGATIVE (0-1) mg/dL Ur Leukocyte Esterase NEGATIVE (NEGATIVE) Urine WBC (Auto) 3-5 (0-5) /HPF Urine RBC (Auto) NONE (0-2) /HPF U Epithel Cells (Auto) NONE (FEW) /HPF Urine Bacteria (Auto) NONE (NEGATIVE) /HPF Urine Mucus (Auto) SLIGHT (NEGATIVE) /HPF Urine Culture Reflexed NO (NO) Urine Glucose NEGATIVE (NEGATIVE) mg/dL - Progress Progress: improved Progress Note: Patient reassessed. He feels well. CT abdomen pelvis essentially nonremarkable. Chronic findings observed. BUN/creatinine mildly elevated. Likely dehydration. Patient will have to increase his oral intake. Patient aware of this need. Pain well controlled. Patient states he is ready for di scharge. He agrees to follow-up with his primary care doctor within 48 hours for reevaluation. He voices no other complaints or concerns at this time. Portions of this note were created with voice recognition technology. There may be grammatical, spelling, punctuation or sound alike errors 05/21/21 15:07 Counseled pt/family regarding: lab results, diagnosis, need for follow-up, rad results - Departure Departure Disposition: Home Clinical Impression: Abdominal pain, Colon, diverticulosis, Polycystic kidney, Benign left renal microcalcification, Hepatic cyst, Elevated BUN and creatinine, Dehydration Condition: Stable Critical Care Time: No Referrals: BRANDIN MARTELL, DIRECTOR OF REGULATORY AFFAIRS [Primary Care Provider] - Follow up/PCP as directed Instructions: Acute Abdomen (Belly Pain), Adult (DC) Additional Instructions: Discharge/Care Plan YESSI BLUE was seen on 05/21/21 in the Emergency Room. The patient was counseled regarding Diagnosis,Lab results, Imaging studies, need for follow up and when to return to the Emergency Room. Prescriptions given: Discharge Note I have spoken with the patient and/or caregivers. I have explained the patient's condition, diagnosis and treatment plan based on the information available to me at this time. I have answered the patient's and/or caregiver's questions and addressed any concerns. The patient and/or caregivers have as good understanding of the patient's diagnosis, condition and treatment plan as can be expected at this point. The vital signs have been stable. The patient's condition is stable and appropriate for discharge from the emergency department. The patient will pursue further outpatient evaluation with the primary care physician or other designated or consulting physician as outlined in the discharge instructions. The patient and/or caregivers are agreeable to this plan of care and follow-up instructions have been explained in detail. The patient and/or caregivers have received these instruction. The patient/and or caregivers are aware that any significant change in condition or worsening of symptoms should prompt an immediate return to this or the closest emergency department or call 911. Forms: Work/School Release Form
[2021-05-21 14:56] VITALS: BP 138/72; PULSE 72
[2021-05-21 14:59] VITALS: O2SAT 99
== END 2021-05-21 15:15 | disposition home or self-care (01) ==
LOC: ED 12:25
DX: K57.30 Diverticulosis of large intestine without perforation or abscess without bleeding (principal); E86.0 Dehydration; R10.33 Periumbilical pain; Q61.3 Polycystic kidney, unspecified; K76.89 Other specified diseases of liver; R94.4 Abnormal results of kidney function studies; R11.2 Nausea with vomiting, unspecified; R19.7 Diarrhea, unspecified; I10 Essential (primary) hypertension; Z85.528 Personal history of other malignant neoplasm of kidney; Z79.899 Other long term (current) drug therapy
CPT/HCPCS: 36000; 36415; 74177; 80053; 81001; 83690; 84484; 85025; 96360; 96374; 96375; 99284; J1885; J2405

== ENCOUNTER 2022-03-25 15:24 | Observation (INO) | payer BC ==
[2022-03-25] MEDS ORDERED: Zofran 4 MG/2 ML VIAL IV ONE (15:54)
[2022-03-25] MEDS ORDERED: Sodium Chloride 0.9% 1000 ML 1,000 ML IV STA (15:54)
[2022-03-25] MEDS ORDERED: MORPHINE SULFATE 2 MG INJ IV ONE (15:54)
[2022-03-25] MEDS ORDERED: Zofran 4 MG/2 ML VIAL ONE (16:06)
[2022-03-25] MEDS ORDERED: Sodium Chloride 0.9% 1000 ML 1,000 ML ONE (16:06)
[2022-03-25] MEDS ORDERED: MORPHINE SULFATE 2 MG INJ ONE (16:06)
--- NOTE | 2022-03-25 16:15 | ERPHSYRPT ---
- History of Present Illness Time Seen by Provider: 03/25/22 16:12 Historian: patient Exam Limitations: no limitations Patient Subjective Stated Complaint: Pt states "I think I am having a diverticulitis flair up. I went to [facility] and they sent me here." Triage Nursing Assessment: PT presented alert and oriented X 3, skin wpd. pt ambulates with an upright steady gait, able to speak in clear full sentences pt in no apparent respiratory distress. Pt has left lower quadrant pain and tenderness. Physician History: Patient is a 41-year-old male presents to emergency department for evaluation of left lower quadrant pain. Abdominal pain started yesterday. Pain worse today. Patient followed up with [facility] who evaluated patient and advised patient come to our ED for an evaluation. Quick care concerned patient may have a perforation. Symptoms are moderate in intensity. Pain reproduced with palpation. Pain improved with rest. No trauma. No fever. Patient had a bowel movement today which she described as normal. Patient states otherwise healthy. He voices no other complaints or concerns at this time. Portions of this note were created with voice recognition technology. There may be grammatical, spelling, punctuation or sound alike errors Timing/Duration: yesterday Activities at Onset: none Quality: aching Abdominal Pain Onset Location: LLQ Pain Radiation: no radiation Severity of Pain-Max: moderate Severity of Pain-Current: mild Modifying Factors: Improves With: nothing Associated Symptoms: denies symptoms Previous symptoms: no prior history Allergies/Adverse Reactions: No Known Drug Allergies Allergy (Verified 08/17/21 15:44) Home Medications: Clonazepam [Klonopin] 2 mg PO HS 08/04/15 [History] Trazodone HCl 40 mg PO HS 08/20/15 [History] lisinopriL [Lisinopril] 40 mg PO DAILY 08/20/15 [History] Lactobacillus Combination No.4 [Probiotic] 1 each PO DAILY 09/27/19 [History] Hx Tetanus, Diphtheria Vaccination/Date Given: Yes Hx Influenza Vaccination/Date Given: No Hx Pneumococcal Vaccination/Date Given: No Immunizations Up to Date: Yes Travel Risk - International Travel Have you traveled outside of the country in past 3 weeks: No - Coronavirus Screening Are you exhibiting any of the following symptoms?: No Close contact with a COVID-19 positive Pt in past 14-21 Days: No - Vaccine Status Have you recieved a Covid-19 vaccination: Yes [employer]: [employer] - Review of Systems Constitutional: No Symptoms, No Fever, No Chills Eyes: No Symptoms Ears, Nose, & Throat: No Symptoms Respiratory: No Symptoms, No Cough, No Dyspnea Cardiac: No Symptoms, No Chest Pain, No Edema, No Syncope Abdominal/Gastrointestinal: No Symptoms, No Abdominal Pain, No Nausea, No Vomiting, No Diarrhea Genitourinary Symptoms: No Symptoms, No Dysuria Musculoskeletal: No Symptoms, No Back Pain, No Neck Pain Skin: No Symptoms, No Rash Neurological: No Symptoms, No Dizziness, No Focal Weakness, No Sensory Changes Psychological: No Symptoms Endocrine: No Symptoms Hematologic/Lymphatic: No Symptoms Immunological/Allergic: No Symptoms All Other Systems: Reviewed and Negative - Past Medical History Pertinent Past Medical History: Yes Neurological History: No Pertinent History ENT History: No Pertinent History Cardiac History: Hypertension Respiratory History: No Pertinent History Endocrine Medical History: No Pertinent History Musculoskeletal History: No Pertinent History GI Medical History: Diverticulitis, Hernia History: Kidney Cancer, Other Psycho-Social History: Anxiety, Depression Male Reproductive Disorders: No Pertinent History Other Medical History: blood in urine, scope 06/2015. polycystic kidney and liver disease. KIDNEY TUMOR. C-DIFF - Past Surgical History Past Surgical History: Yes Neuro Surgical History: No Pertinent History Cardiac: No Pertinent History Respiratory: No Pertinent History Gastrointestinal: Appendectomy, Hernia Repair Genitourinary: No Pertinent History, Other Musculoskeletal: Orthopedic Surgery Male Surgical History: No Pertinent History Other Surgical History: hand fx.right hand (no hdwe) hernia repair x 2, urinary scope with stent 2016 r/t polycystic kidney disease - Social History Smoking Status: Former smoker Exposure to second hand smoke: No Drug Use: none Patient Lives Alone: No Significant Family History: no pertinent family hx - Nursing Vital Signs Nursing Vital Signs: Initial Vital Signs Temperature 98.7 F 03/25/22 15:29 Pulse Rate 79 03/25/22 15:29 Respiratory Rate 20 03/25/22 15:29 Blood Pressure 152/98 03/25/22 15:29 O2 Sat by Pulse Oximetry 98 03/25/22 15:29 Pain Scale Pain Intensity 4 - Physical Exam General Appearance: no apparent distress, alert Eye Exam: PERRL/EOMI, eyes nml inspection Ears, Nose, Throat Exam: normal ENT inspection, pharynx normal, moist mucous membranes Neck Exam: normal inspection, non-tender, supple, full range of motion Respiratory Exam: normal breath sounds, lungs clear, airway intact, No chest tenderness, No respiratory distress Cardiovascular Exam: regular rate/rhythm, normal heart sounds, normal peripheral pulses Gastrointestinal/Abdomen Exam: soft, normal bowel sounds, tenderness, other (Tenderness palpation left lower quadrant.), No mass Back Exam: normal inspection, normal range of motion, No CVA tenderness, No vertebral tenderness Extremity Exam: normal inspection, normal range of motion, pelvis stable Neurologic Exam: alert, oriented x 3, cooperative, normal mood/affect, nml cerebellar function, sensation nml, No motor deficits Skin Exam: normal color, warm, dry Lymphatic Exam: No adenopathy SpO2 Interpretation: normal SpO2: 98 O2 Delivery: Room Air - Course Nursing assessment & vital signs reviewed: Yes - CT Exams Abdomen/Pelvis CT Interpretation: Tele-radiologist Report (Diverticulitis) Ordered Tests: Active Orders 24 hr Category Date Time Status IV Insertion STAT Care 03/25/22 15:54 Active ABDOMEN AND PELVIS W/0 CONTRAS [CT] Stat Exams 03/25/22 15:54 Completed CBC W DIFF Stat Lab 03/25/22 16:02 Completed CMP Stat Lab 03/25/22 16:02 Completed LIPASE Stat Lab 03/25/22 16:02 Completed TROPONIN Q4H Lab 03/25/22 16:02 Completed TROPONIN Q4H Lab 03/25/22 20:00 Ordered TROPONIN Q4H Lab 03/26/22 00:00 Ordered UA W/RFX CULTURE Stat Lab 03/25/22 Completed Medication Summary Discontinued Medications Generic Name Dose Route Start Last Admin Trade Name Marlonq PRN Reason Stop Dose Admin Sodium Chloride 1,000 mls @ 999 mls/hr 03/25/22 15:54 03/25/22 17:17 Sodium Chloride 0.9% 1000 Ml IV 03/25/22 16:54 Infused .Q1H1M STA Infusion Sodium Chloride Confirm 03/25/22 16:06 Sodium Chloride 0.9% 1000 Ml Administered 03/25/22 16:07 Dose 1,000 mls @ ud .ROUTE .STK-MED ONE Piperacillin Sod/Tazobactam 100 mls @ 200 mls/hr 03/25/22 17:13 03/25/22 17:17 Sod 3.375 gm/ Sodium Chloride IV 03/25/22 17:42 200 mls/hr STAT ONE Administration Sodium Chloride Confirm 03/25/22 17:16 Sodium Chloride 100ml Mini-Bag Plus Administered 03/25/22 17:17 Dose 100 mls @ ud IV .STK-MED ONE Morphine Sulfate 2 mg 03/25/22 15:54 03/25/22 16:14 Morphine Sulfate 2 Mg/Ml Inj IV 03/25/22 15:55 2 mg STAT ONE Administration Morphine Sulfate Confirm 03/25/22 16:06 Morphine Sulfate 2 Mg/Ml Inj Administered 03/25/22 16:07 Dose 2 mg .ROUTE .STK-MED ONE Ondansetron HCl 4 mg 03/25/22 15:54 03/25/22 16:11 Ondansetron Hcl 4 Mg/2 Ml Vial IV 03/25/22 15:55 4 mg STAT ONE Administration Ondansetron HCl Confirm 03/25/22 16:06 Ondansetron Hcl 4 Mg/2 Ml Vial Administered 03/25/22 16:07 Dose 4 mg .ROUTE .STK-MED ONE Piperacillin Sod/Tazobactam Sod Confirm 03/25/22 17:16 Piperacillin/Tazobactam Sodium 3.375 Gm Vial Administered 03/25/22 17:17 Dose 3.375 gm IV .STK-MED ONE Lab/Rad Data: Laboratory Result Diagrams 03/25/22 16:02 03/25/22 16:02 Laboratory Results 03/25/22 03/25/22 03/25/22 Range/Units Unknown 16:02 16:02 WBC (4.0-10.5) x10^3/uL RBC (4.1-5.6) x10^6/uL Hgb (12.5-18.0) g/dL Hct (42-50) % MCV (78-100) fL MCH (26-32) pg MCHC (32-36) g/dL RDW (11.5-14.0) % Plt Count (150-450) x10^3/uL MPV (7.5-11.0) fL Gran % (36.0-66.0) % Immature Gran % (Auto) (0.00-0.4) % Nucleat RBC Rel Count (0.00-0.1) % Eos # (Auto) (0-0.5) x10^3/uL Immature Gran # (Auto) (0.00-0.03) x10^3u/L Absolute Lymphs (auto) (1.0-4.6) x10^3/uL Absolute Monos (auto) (0.0-1.3) x10^3/uL Absolute Nucleated RBC (0.00-0.01) x10^3u/L Lymphocytes % (24.0-44.0) % Monocytes % (0.0-12.0) % Eosinophils % (0.00-5.0) % Basophils % (0.0-0.4) % Absolute Granulocytes (1.4-6.9) x10^3/uL Basophils # (0-0.4) x10^3/uL Sodium 136 L (137-145) mmol/L Potassium 3.8 (3.5-5.1) mmol/L Chloride 101 (98-107) mmol/L Carbon Dioxide 31 H (22-30) mmol/L Anion Gap 7.9 (5-15) MEQ/L BUN 22 H (9-20) mg/dL Creatinine 1.35 H (0.66-1.25) mg/dL Estimated GFR > 60.0 ML/MIN Glucose 93 (74-106) mg/dL Calcium 8.9 (8.4-10.2) mg/dL Total Bilirubin 1.00 (0.2-1.3) mg/dL AST 22 (17-59) U/L ALT 22 (0-50) U/L Alkaline Phosphatase 62 (38-126) U/L Troponin I < 0.012 (0.000-0.034) ng/mL Serum Total Protein 7.5 (6.3-8.2) g/dL Albumin 4.3 (3.5-5.0) g/dL Lipase 324 H (23-300) U/L Urinalys Dipstick Clnc MAIN LAB Urine Color YELLOW (YELLOW) Urine Appearance CLEAR (CLEAR) Urine pH 6.0 (5-6) Ur Specific [place] >=1.030 A (1.005-1.025) POC Urine Protein Conf 30 A (Negative) Urine Ketones NEGATIVE (NEGATIVE) Urine Nitrite NEGATIVE (NEGATIVE) Urine Bilirubin NEGATIVE (NEGATIVE) Urine Urobilinogen 0.2 (0-1) mg/dL Urine Leukocytes NEGATIVE (NEGATIVE) Urine WBC (Auto) 0-2 (0-5) /HPF Urine RBC (Auto) 0-2 (0-2) /HPF U Epithel Cells (Auto) NONE (FEW) /HPF Urine Bacteria (Auto) NONE (NEGATIVE) /HPF Urine RBC NEGATIVE (0-5) Fredo/ul Urine Mucus (Auto) SLIGHT A (NEGATIVE) /HPF Ur Culture Indicated? NO Urine Glucose NEGATIVE (NEGATIVE) mg/dL 03/25/22 Range/Units 16:02 WBC 7.9 (4.0-10.5) x10^3/uL RBC 5.04 (4.1-5.6) x10^6/uL Hgb 15.4 (12.5-18.0) g/dL Hct 46.1 (42-50) % MCV 91.5 (78-100) fL MCH 30.6 (26-32) pg MCHC 33.4 (32-36) g/dL RDW 11.8 (11.5-14.0) % Plt Count 202 (150-450) x10^3/uL MPV 9.6 (7.5-11.0) fL Gran % 75.9 H (36.0-66.0) % Immature Gran % (Auto) 0.1 (0.00-0.4) % Nucleat RBC Rel Count 0.0 (0.00-0.1) % Eos # (Auto) 0.09 (0-0.5) x10^3/uL Immature Gran # (Auto) 0.01 (0.00-0.03) x10^3u/L Absolute Lymphs (auto) 1.06 (1.0-4.6) x10^3/uL Absolute Monos (auto) 0.70 (0.0-1.3) x10^3/uL Absolute Nucleated RBC 0.00 (0.00-0.01) x10^3u/L Lymphocytes % 13.4 L (24.0-44.0) % Monocytes % 8.9 (0.0-12.0) % Eosinophils % 1.1 (0.00-5.0) % Basophils % 0.6 (0.0-0.4) % Absolute Granulocytes 5.99 (1.4-6.9) x10^3/uL Basophils # 0.05 (0-0.4) x10^3/uL Sodium (137-145) mmol/L Potassium (3.5-5.1) mmol/L Chloride (98-107) mmol/L Carbon Dioxide (22-30) mmol/L Anion Gap (5-15) MEQ/L BUN (9-20) mg/dL Creatinine (0.66-1.25) mg/dL Estimated GFR ML/MIN Glucose (74-106) mg/dL Calcium (8.4-10.2) mg/dL Total Bilirubin (0.2-1.3) mg/dL AST (17-59) U/L ALT (0-50) U/L Alkaline Phosphatase (38-126) U/L Troponin I (0.000-0.034) ng/mL Serum Total Protein (6.3-8.2) g/dL Albumin (3.5-5.0) g/dL Lipase (23-300) U/L Urinalys Dipstick Clnc Urine Color (YELLOW) Urine Appearance (CLEAR) Urine pH (5-6) Ur Specific [place] (1.005-1.025) POC Urine Protein Conf (Negative) Urine Ketones (NEGATIVE) Urine Nitrite (NEGATIVE) Urine Bilirubin (NEGATIVE) Urine Urobilinogen (0-1) mg/dL Urine Leukocytes (NEGATIVE) Urine WBC (Auto) (0-5) /HPF Urine RBC (Auto) (0-2) /HPF U Epithel Cells (Auto) (FEW) /HPF Urine Bacteria (Auto) (NEGATIVE) /HPF Urine RBC (0-5) Fredo/ul Urine Mucus (Auto) (NEGATIVE) /HPF Ur Culture Indicated? Urine Glucose (NEGATIVE) mg/dL - Progress Progress: improved Progress Note: Patient requesting admission. Case discussed with Dr. Mccall who excepts admission to observation. Patient reassessed. Pain improved. Antibiotics infused. COVID test pending. Plan of care discussed with patient. He agrees to admission at [facility] for further evaluation and treatment. Portions of this note were created with voice recognition technology. There may be grammatical, spelling, punctuation or sound alike errors 03/25/22 17:59 Discussed with : Patrizia Will see patient in: hospital (observation) Counseled pt/family regarding: lab results, diagnosis, rad results - Departure Departure Disposition: Observation Clinical Impression: Proteinuria, Polycystic kidney disease, Acute renal injury, Diverticulosis, Acute diverticulitis, Liver cyst Condition: Stable Critical Care Time: No Referrals: BRANDIN MARTELL, GAS JOCKEY [Primary Care Provider] - Follow up/PCP as directed
[2022-03-25 16:24] LABS: Absolute Neutrophil Ct (ANC) 5.99 x10^3/uL (1.4-6.9); Basophil (Absolute #) 0.05 x10^3/uL (0-0.4); Eosinophil % 1.1 % (0.00-5.0); Eosinophil (Absolute #) 0.09 x10^3/uL (0-0.5); Hematocrit 46.1 % (42-50); Hemoglobin 15.4 g/dL (12.5-18.0); Lymphocyte (Absolute #) 1.06 x10^3/uL (1.0-4.6); Lymphocytes % 13.4 % (24.0-44.0); Mean Cell Volume 91.5 fL (78-100); Mean Corpuscular Hemoglobin 30.6 pg (26-32); Mean Corpuscular Hgb Concent. 33.4 g/dL (32-36); Mean Platelet Volume 9.6 fL (7.5-11.0); Monocytes % 8.9 % (0.0-12.0); Neutrophil % 75.9 % (36.0-66.0); Platelet Count 202 x10^3/uL (150-450); Red Blood Count 5.04 x10^6/uL (4.1-5.6); Red Cell Distribution Width 11.8 % (11.5-14.0); White Blood Count 7.9 x10^3/uL (4.0-10.5)
[2022-03-25 16:28] LABS: Appearance CLEAR (CLEAR); Bilirubin NEGATIVE (NEGATIVE); Dipstick done @ ? MAIN LAB; Glucose NEGATIVE (NEGATIVE); Ketones NEGATIVE (NEGATIVE); Nitrite NEGATIVE (NEGATIVE); Protein,Urine Dip 30 (Negative); RBC NEGATIVE Ery/ul (0-5); Specific Gravity >=1.030 (1.005-1.025); Urobilinogen 0.2 mg/dL (0-1)
--- NOTE | 2022-03-25 16:47 | XRAY ---
Indication: Left lower quadrant pain 2 weeks. History diverticulitis. Multiple contiguous axial images obtained through the abdomen and pelvis without contrast. Comparison: May 21, 2021 Lung bases again demonstrates minimal dependent atelectasis. Heart not enlarged. Noncontrasted stomach and bowel loops nonobstructed again with appendectomy and diffuse scattered diverticulosis. Proximal sigmoid demonstrates short segment of new mild wall thickening and pericolonic stranding favoring mild acute diverticulitis. Tiny free fluid but no walled off fluid collection or free air. Stable polycystic kidneys, benign bilateral renal cortical calcifications, and multiple hepatic cysts. Remaining liver, gallbladder, pancreas, spleen, adrenal glands, kidneys, ureters, bladder, and aorta are unremarkable for noncontrast exam. Osseous structures intact. Impression: 1. Again diffuse colonic diverticulosis with new mild diverticulitis proximal sigmoid colon. No complications. 2. Again chronic findings including polycystic kidneys, benign bilateral renal calcifications, and hepatic cysts.
[2022-03-25 16:58] LABS: ALBUMIN 4.3 g/dL (3.5-5.0); ALKALINE PHOSPHATASE 62 U/L (38-126); ANION GAP 7.9 MEQ/L (5-15); BLOOD UREA NITROGEN 22 mg/dL (9-20); CHLORIDE 101 mmol/L (98-107); Calcium 8.9 mg/dL (8.4-10.2); Carbon Dioxide 31 mmol/L (22-30); Creatinine 1 1.35 mg/dL (0.66-1.25); EST GLOMERULAR FILTRATION RATE > 60.0 ML/MIN; Glucose 93 mg/dL (74-106); LIPASE 324 U/L (23-300); Potassium 3.8 mmol/L (3.5-5.1); SGOT/AST 22 U/L (17-59); SGPT/ALT 22 U/L (0-50); SODIUM 136 mmol/L (137-145); Total Protein 7.5 g/dL (6.3-8.2)
[2022-03-25] MEDS ORDERED: PIPERACILLIN/TAZOBACTAM 3.375 GM in Sodium Chloride 100ML MINI-BAG PLUS 100 ML IV ONE (17:13)
[2022-03-25] MEDS ORDERED: Sodium Chloride 100ML MINI-BAG PLUS 100 ML IV ONE (17:16)
[2022-03-25] MEDS ORDERED: PIPERACILLIN/TAZOBACTAM IV ONE (17:16)
[2022-03-25 17:33] LABS: Mucus SLIGHT /HPF (NEGATIVE); RBC 0-2 /HPF (0-2); WBC 0-2 /HPF (0-5)
[2022-03-25 17:43] LABS: Urine Cultured Indicated? NO
[2022-03-25 18:48] LABS: INFLUENZA A NEGATIVE (NEGATIVE); INFLUENZA B NEGATIVE (NEGATIVE); RESPIRATORY SYNCTIAL VIRUS NEGATIVE (Negative); SARS-CoV-2 Xpert Express NEGATIVE (NEGATIVE)
[2022-03-25] MEDS: PIPERACILLIN/TAZOBACTAM 3.375 GM in Sodium Chloride 100ML MINI-BAG PLUS 100 ML IV SCH ×2 (20:39→23:47)
[2022-03-25] MEDS: Sodium Chloride 0.9% 1000 ML 1,000 ML IV SCH (20:47)
[2022-03-25] MEDS: Hydromorphone 1 mg/ml Injection IV PRN (20:47)
[2022-03-25] MEDS ORDERED: NON-FORMULARY ITEM (Trazodone Hcl [Trazodone Hcl] 100 MG Tablet) PO SCH (22:00)
[2022-03-25] MEDS: KLONOPIN PO SCH (23:15)
[2022-03-25] MEDS: Desyrel 150 MG PO SCH (23:15)
[2022-03-26] MEDS: Hydromorphone 1 mg/ml Injection IV PRN ×5 (00:54→22:19)
[2022-03-26 05:51] LABS: Absolute Neutrophil Ct (ANC) 3.66 x10^3/uL (1.4-6.9); Basophil (Absolute #) 0.03 x10^3/uL (0-0.4); Eosinophil (Absolute #) 0.16 x10^3/uL (0-0.5); Hematocrit 43.1 % (42-50); Hemoglobin 14.5 g/dL (12.5-18.0); Lymphocyte (Absolute #) 0.92 x10^3/uL (1.0-4.6); Lymphocytes % 17.4 % (24.0-44.0); Mean Cell Volume 89.4 fL (78-100); Mean Corpuscular Hemoglobin 30.1 pg (26-32); Mean Corpuscular Hgb Concent. 33.6 g/dL (32-36); Mean Platelet Volume 9.7 fL (7.5-11.0); Monocyte (Absolute #) 0.51 x10^3/uL (0.0-1.3); Monocytes % 9.6 % (0.0-12.0); Neutrophil % 69.2 % (36.0-66.0); Platelet Count 175 x10^3/uL (150-450); Red Blood Count 4.82 x10^6/uL (4.1-5.6); Red Cell Distribution Width 11.9 % (11.5-14.0); White Blood Count 5.3 x10^3/uL (4.0-10.5)
[2022-03-26] MEDS: PIPERACILLIN/TAZOBACTAM 3.375 GM in Sodium Chloride 100ML MINI-BAG PLUS 100 ML IV SCH ×4 (06:04→23:50)
[2022-03-26 06:33] LABS: ALBUMIN 3.5 g/dL (3.5-5.0); ALKALINE PHOSPHATASE 49 U/L (38-126); ANION GAP 8.4 MEQ/L (5-15); BLOOD UREA NITROGEN 17 mg/dL (9-20); CHLORIDE 104 mmol/L (98-107); Calcium 7.9 mg/dL (8.4-10.2); Carbon Dioxide 29 mmol/L (22-30); Creatinine 1 1.34 mg/dL (0.66-1.25); EST GLOMERULAR FILTRATION RATE > 60.0 ML/MIN; Glucose 95 mg/dL (74-106); Potassium 4.2 mmol/L (3.5-5.1); SGOT/AST 16 U/L (17-59); SGPT/ALT 18 U/L (0-50); SODIUM 137 mmol/L (137-145); Total Protein 6.3 g/dL (6.3-8.2)
[2022-03-26] MEDS: Sodium Chloride 0.9% 1000 ML 1,000 ML IV SCH ×3 (07:48→22:19)
[2022-03-26] MEDS: Zestril 20 MG PO SCH (08:30)
[2022-03-26] MEDS ORDERED: NON-FORMULARY ITEM (Lisinopril [Lisinopril] 40 MG Tablet) PO SCH (10:00)
--- NOTE | 2022-03-26 11:05 | PCM.HP ---
History of Present Illness - Chief Complaint Chief Complaint: abdominal pain for 2-3 days History of Present Illness: is a 41 year old male.for evaluation of left lower quadrant pain. Abdominal pain started yesterday. Pain worse today. Patient followed up with [facility] who evaluated patient and advised patient come to our ED for an evaluation. [facility] concerned patient may have a perforation. Symptoms are moderate in intensity. Pain reproduced with palpation. Pain improved with rest. No trauma. No fever. Patient had a bowel movement today which she described as normal. Patient states otherwise healthy. He voices no other complaints or concerns at this time. - Review of Systems Constitutional: No Fever, No Chills Eyes: No Symptoms Ears, Nose, & Throat: No Symptoms Respiratory: No Cough, No Short Of Breath Cardiac: No Chest Pain, No Edema, No Syncope Abdominal/Gastrointestinal: Abdominal Pain, No Nausea, No Vomiting, No Diarrhea Genitourinary Symptoms: No Dysuria Musculoskeletal: No Back Pain, No Neck Pain Skin: No Rash Neurological: No Dizziness, No Focal Weakness, No Sensory Changes Psychological: No Symptoms Endocrine: No Symptoms Hematologic/Lymphatic: No Symptoms Immunological/Allergic: No Symptoms Medications & Allergies Home Medications: Home Medication List Clonazepam [Klonopin] 2 mg PO HS 08/04/15 [History Confirmed 03/25/22] Trazodone HCl 150 mg PO HS 08/20/15 [History Confirmed 03/25/22] lisinopriL [Lisinopril] 40 mg PO DAILY 08/20/15 [History Confirmed 03/25/22] Lactobacillus Combination No.4 [Probiotic] 1 each PO HS 09/27/19 [History Confirmed 03/25/22] Allergies/Adverse Reactions: Allergies Allergy/AdvReac Type Severity Reaction Status Date / Time No Known Drug Allergies Allergy Verified 03/25/22 20:19 - Past Medical History Past Medical History: Yes Neurological History: No Pertinent History ENT History: No Pertinent History Cardiac History: Hypertension Respiratory History: No Pertinent History Endocrine Medical History: No Pertinent History Musculoskelatal History: No Pertinent History GI Medical History: Diverticulitis, Hernia History: Kidney Cancer, Other Pyscho-Social History: Anxiety, Depression Male Reproductive Disorders: No Pertinent History Comment: blood in urine, scope 06/2015. polycystic kidney and liver disease. KIDNEY TUMOR. C-DIFF - Past Surgical History Past Surgical History: Yes Neuro Surgical History: No Pertinent History Cardiac History: No Pertinent History Respiratory Surgery: No Pertinent History GI Surgical History: Appendectomy, Hernia Repair Genitourinary Surgical Hx: Other Musculskeletal Surgical Hx: Orthopedic Surgery Male Surgical History: No Pertinent History Other Surgical History: hand fx.right hand (no hdwe) hernia repair x 2, urinary scope with stent 2017 r/t polycystic kidney disease - Social History Smoking Status: Never smoker Exposure to second hand smoke: No Alcohol: Rarely Drug Use: none Significant Family History: no pertinent family hx - Physical Exam Vital Signs: Vital Signs - 24 hr Temp Pulse Resp BP Pulse Ox 03/26/22 07:05 98.0 F 75 16 111/67 97 03/26/22 04:00 97.5 F 66 16 99/55 96 03/25/22 23:46 97.7 F 86 16 132/86 96 03/25/22 20:04 97.5 F 68 20 146/94 97 03/25/22 18:03 98 03/25/22 17:26 75 123/89 99 03/25/22 16:39 98.7 F 79 20 127/98 99 03/25/22 15:29 98.7 F 79 20 152/98 98 General Appearance: no apparent distress, alert Neurologic Exam: alert, oriented x 3, cooperative, normal mood/affect, nml cerebellar function, nml station & gait, sensation nml, No motor deficits Eye Exam: PERRL/EOMI, eyes nml inspection Ears, Nose, Throat Exam: normal ENT inspection, TMs normal, pharynx normal, moist mucous membranes Neck Exam: normal inspection, non-tender, supple, full range of motion Respiratory Exam: normal breath sounds, lungs clear, No respiratory distress Cardiovascular Exam: regular rate/rhythm, normal heart sounds, normal peripheral pulses Gastrointestinal/Abdomen Exam: soft, tenderness, No mass Back Exam: normal inspection, normal range of motion, No CVA tenderness, No vertebral tenderness Extremity Exam: normal inspection, normal range of motion, pelvis stable Skin Exam: normal color, warm, dry, No rash Lymphatic Exam: No adenopathy Results - Labs Lab/Micro Results: Lab Results-Last 24 Hours 03/25/22 03/25/22 03/25/22 Range/Units 16:02 16:02 16:02 WBC 7.9 (4.0-10.5) x10^3/uL RBC 5.04 (4.1-5.6) x10^6/uL Hgb 15.4 (12.5-18.0) g/dL Hct 46.1 (42-50) % MCV 91.5 (78-100) fL MCH 30.6 (26-32) pg MCHC 33.4 (32-36) g/dL RDW 11.8 (11.5-14.0) % Plt Count 202 (150-450) x10^3/uL MPV 9.6 (7.5-11.0) fL Gran % 75.9 H (36.0-66.0) % Immature Gran % (Auto) 0.1 (0.00-0.4) % Nucleat RBC Rel Count 0.0 (0.00-0.1) % Eos # (Auto) 0.09 (0-0.5) x10^3/uL Immature Gran # (Auto) 0.01 (0.00-0.03) x10^3u/L Absolute Lymphs (auto) 1.06 (1.0-4.6) x10^3/uL Absolute Monos (auto) 0.70 (0.0-1.3) x10^3/uL Absolute Nucleated RBC 0.00 (0.00-0.01) x10^3u/L Lymphocytes % 13.4 L (24.0-44.0) % Monocytes % 8.9 (0.0-12.0) % Eosinophils % 1.1 (0.00-5.0) % Basophils % 0.6 (0.0-0.4) % Absolute Granulocytes 5.99 (1.4-6.9) x10^3/uL Basophils # 0.05 (0-0.4) x10^3/uL Sodium 136 L (137-145) mmol/L Potassium 3.8 (3.5-5.1) mmol/L Chloride 101 (98-107) mmol/L Carbon Dioxide 31 H (22-30) mmol/L Anion Gap 7.9 (5-15) MEQ/L BUN 22 H (9-20) mg/dL Creatinine 1.35 H (0.66-1.25) mg/dL Estimated GFR > 60.0 ML/MIN Glucose 93 (74-106) mg/dL Calcium 8.9 (8.4-10.2) mg/dL Total Bilirubin 1.00 (0.2-1.3) mg/dL AST 22 (17-59) U/L ALT 22 (0-50) U/L Alkaline Phosphatase 62 (38-126) U/L Troponin I < 0.012 (0.000-0.034) ng/mL Serum Total Protein 7.5 (6.3-8.2) g/dL Albumin 4.3 (3.5-5.0) g/dL Lipase 324 H (23-300) U/L Urinalys Dipstick Clnc Urine Color (YELLOW) Urine Appearance (CLEAR) Urine pH (5-6) Ur Specific [place] (1.005-1.025) POC Urine Protein Conf (Negative) Urine Ketones (NEGATIVE) Urine Nitrite (NEGATIVE) Urine Bilirubin (NEGATIVE) Urine Urobilinogen (0-1) mg/dL Urine Leukocytes (NEGATIVE) Urine WBC (Auto) (0-5) /HPF Urine RBC (Auto) (0-2) /HPF U Epithel Cells (Auto) (FEW) /HPF Urine Bacteria (Auto) (NEGATIVE) /HPF Urine RBC (0-5) Fredo/ul Urine Mucus (Auto) (NEGATIVE) /HPF Ur Culture Indicated? Urine Glucose (NEGATIVE) mg/dL Influenza Type A Ag (NEGATIVE) Influenza Type B Ag (NEGATIVE) RSV (PCR) (Negative) SARS-CoV-2 (PCR) (NEGATIVE) 03/25/22 03/25/22 03/25/22 Range/Units 17:50 20:20 Unknown WBC (4.0-10.5) x10^3/uL RBC (4.1-5.6) x10^6/uL Hgb (12.5-18.0) g/dL Hct (42-50) % MCV (78-100) fL MCH (26-32) pg MCHC (32-36) g/dL RDW (11.5-14.0) % Plt Count (150-450) x10^3/uL MPV (7.5-11.0) fL Gran % (36.0-66.0) % Immature Gran % (Auto) (0.00-0.4) % Nucleat RBC Rel Count (0.00-0.1) % Eos # (Auto) (0-0.5) x10^3/uL Immature Gran # (Auto) (0.00-0.03) x10^3u/L Absolute Lymphs (auto) (1.0-4.6) x10^3/uL Absolute Monos (auto) (0.0-1.3) x10^3/uL Absolute Nucleated RBC (0.00-0.01) x10^3u/L Lymphocytes % (24.0-44.0) % Monocytes % (0.0-12.0) % Eosinophils % (0.00-5.0) % Basophils % (0.0-0.4) % Absolute Granulocytes (1.4-6.9) x10^3/uL Basophils # (0-0.4) x10^3/uL Sodium (137-145) mmol/L Potassium (3.5-5.1) mmol/L Chloride (98-107) mmol/L Carbon Dioxide (22-30) mmol/L Anion Gap (5-15) MEQ/L BUN (9-20) mg/dL Creatinine (0.66-1.25) mg/dL Estimated GFR ML/MIN Glucose (74-106) mg/dL Calcium (8.4-10.2) mg/dL Total Bilirubin (0.2-1.3) mg/dL AST (17-59) U/L ALT (0-50) U/L Alkaline Phosphatase (38-126) U/L Troponin I < 0.012 (0.000-0.034) ng/mL Serum Total Protein (6.3-8.2) g/dL Albumin (3.5-5.0) g/dL Lipase (23-300) U/L Urinalys Dipstick Clnc MAIN LAB Urine Color YELLOW (YELLOW) Urine Appearance CLEAR (CLEAR) Urine pH 6.0 (5-6) Ur Specific [place] >=1.030 A (1.005-1.025) POC Urine Protein Conf 30 A (Negative) Urine Ketones NEGATIVE (NEGATIVE) Urine Nitrite NEGATIVE (NEGATIVE) Urine Bilirubin NEGATIVE (NEGATIVE) Urine Urobilinogen 0.2 (0-1) mg/dL Urine Leukocytes NEGATIVE (NEGATIVE) Urine WBC (Auto) 0-2 (0-5) /HPF Urine RBC (Auto) 0-2 (0-2) /HPF U Epithel Cells (Auto) NONE (FEW) /HPF Urine Bacteria (Auto) NONE (NEGATIVE) /HPF Urine RBC NEGATIVE (0-5) Fredo/ul Urine Mucus (Auto) SLIGHT A (NEGATIVE) /HPF Ur Culture Indicated? NO Urine Glucose NEGATIVE (NEGATIVE) mg/dL Influenza Type A Ag NEGATIVE (NEGATIVE) Influenza Type B Ag NEGATIVE (NEGATIVE) RSV (PCR) NEGATIVE (Negative) SARS-CoV-2 (PCR) NEGATIVE (NEGATIVE) 03/26/22 03/26/22 03/26/22 Range/Units 00:15 05:25 05:25 WBC 5.3 (4.0-10.5) x10^3/uL RBC 4.82 (4.1-5.6) x10^6/uL Hgb 14.5 (12.5-18.0) g/dL Hct 43.1 (42-50) % MCV 89.4 (78-100) fL MCH 30.1 (26-32) pg MCHC 33.6 (32-36) g/dL RDW 11.9 (11.5-14.0) % Plt Count 175 (150-450) x10^3/uL MPV 9.7 (7.5-11.0) fL Gran % 69.2 H (36.0-66.0) % Immature Gran % (Auto) 0.2 (0.00-0.4) % Nucleat RBC Rel Count 0.0 (0.00-0.1) % Eos # (Auto) 0.16 (0-0.5) x10^3/uL Immature Gran # (Auto) 0.01 (0.00-0.03) x10^3u/L Absolute Lymphs (auto) 0.92 L (1.0-4.6) x10^3/uL Absolute Monos (auto) 0.51 (0.0-1.3) x10^3/uL Absolute Nucleated RBC 0.00 (0.00-0.01) x10^3u/L Lymphocytes % 17.4 L (24.0-44.0) % Monocytes % 9.6 (0.0-12.0) % Eosinophils % 3.0 (0.00-5.0) % Basophils % 0.6 (0.0-0.4) % Absolute Granulocytes 3.66 (1.4-6.9) x10^3/uL Basophils # 0.03 (0-0.4) x10^3/uL Sodium 137 (137-145) mmol/L Potassium 4.2 (3.5-5.1) mmol/L Chloride 104 (98-107) mmol/L Carbon Dioxide 29 (22-30) mmol/L Anion Gap 8.4 (5-15) MEQ/L BUN 17 (9-20) mg/dL Creatinine 1.34 H (0.66-1.25) mg/dL Estimated GFR > 60.0 ML/MIN Glucose 95 (74-106) mg/dL Calcium 7.9 L (8.4-10.2) mg/dL Total Bilirubin 1.30 (0.2-1.3) mg/dL AST 16 L (17-59) U/L ALT 18 (0-50) U/L Alkaline Phosphatase 49 (38-126) U/L Troponin I < 0.012 (0.000-0.034) ng/mL Serum Total Protein 6.3 (6.3-8.2) g/dL Albumin 3.5 (3.5-5.0) g/dL Lipase (23-300) U/L Urinalys Dipstick Clnc Urine Color (YELLOW) Urine Appearance (CLEAR) Urine pH (5-6) Ur Specific [place] (1.005-1.025) POC Urine Protein Conf (Negative) Urine Ketones (NEGATIVE) Urine Nitrite (NEGATIVE) Urine Bilirubin (NEGATIVE) Urine Urobilinogen (0-1) mg/dL Urine Leukocytes (NEGATIVE) Urine WBC (Auto) (0-5) /HPF Urine RBC (Auto) (0-2) /HPF U Epithel Cells (Auto) (FEW) /HPF Urine Bacteria (Auto) (NEGATIVE) /HPF Urine RBC (0-5) Fredo/ul Urine Mucus (Auto) (NEGATIVE) /HPF Ur Culture Indicated? Urine Glucose (NEGATIVE) mg/dL Influenza Type A Ag (NEGATIVE) Influenza Type B Ag (NEGATIVE) RSV (PCR) (Negative) SARS-CoV-2 (PCR) (NEGATIVE) - Radiology Impressions Radiology Exams & Impressions: Radiology Procedures Category Date Time Status ABDOMEN AND PELVIS W/0 CONTRAS [CT] Stat Exams 03/25/22 15:[address]/ABDOMEN AND PELVIS W/0 CONTRAS Indication: Left lower quadrant pain 2 weeks. History diverticulitis. Multiple contiguous axial images obtained through the abdomen and pelvis without contrast. Comparison: May 21, 2021 Lung bases again demonstrates minimal dependent atelectasis. Heart not enlarged. Noncontrasted stomach and bowel loops nonobstructed again with appendectomy and diffuse scattered diverticulosis. Proximal sigmoid demonstrates short segment of new mild wall thickening and pericolonic stranding favoring mild acute diverticulitis. Tiny free fluid but no walled off fluid collection or free air. Stable polycystic kidneys, benign bilateral renal cortical calcifications, and multiple hepatic cysts. Remaining liver, gallbladder, pancreas, spleen, adrenal glands, kidneys, ureters, bladder, and aorta are unremarkable for noncontrast exam. Osseous structures intact. Impression: 1. Again diffuse colonic diverticulosis with new mild diverticulitis proximal sigmoid colon. No complications. 2. Again chronic findings including polycystic kidneys, benign bilateral renal calcifications, and hepatic cysts. Assessment/Plan (1) Acute diverticulitis Current Visit: Yes Status: Acute Assessment & Plan: Chief Complaint Diagnosis DIVERTICULITIS Allergies Allergy/AdvReac Type Severity Reaction Status Date / Time No Known Drug Allergies Allergy Verified 03/25/22 20:19 Vital Signs (Last 24 hours) Temp Pulse Resp BP Pulse Ox 03/26/22 07:05 98.0 F 75 16 111/67 97 03/26/22 04:00 97.5 F 66 16 99/55 96 03/25/22 23:46 97.7 F 86 16 132/86 96 03/25/22 20:04 97.5 F 68 20 146/94 97 03/25/22 18:03 98 03/25/22 17:26 75 123/89 99 03/25/22 16:39 98.7 F 79 20 127/98 99 03/25/22 15:29 98.7 F 79 20 152/98 98 Current Medications Generic Name Dose Route Start Last Admin Trade Name Freq PRN Reason Stop Dose Admin Clonazepam 2 mg 03/25/22 22:00 03/25/22 23:15 Clonazepam 2 Mg Tablet PO 04/24/22 21:59 2 mg HS PENNY Administration Hydromorphone HCl 1 mg 03/26/22 09:05 03/26/22 09:47 Hydromorphone 1 Mg/1ml Inj 1 Mg/Ml Syringe IV 03/30/22 20:31 1 mg Q4H PRN PRN Administration PAIN Sodium Chloride 1,000 mls @ 100 mls/hr 03/25/22 20:02 03/26/22 07:48 Sodium Chloride 0.9% 1000 Ml IV 04/24/22 20:01 100 mls/hr .Q10H PENNY Administration Piperacillin Sod/Tazobactam 100 mls @ 200 mls/hr 03/25/22 20:02 03/26/22 06:04 Sod 3.375 gm/ Sodium Chloride IV 03/28/22 20:01 200 mls/hr Q6HT PENNY Administration Lisinopril 40 mg 03/26/22 10:00 03/26/22 08:30 Lisinopril 20 Mg Tablet PO 04/25/22 09:59 40 mg DAILY PENNY Administration Ondansetron HCl 4 mg 03/25/22 20:32 Ondansetron Hcl 4 Mg/2 Ml Vial IV 04/24/22 20:31 Q4H PRN PRN NAUSEA/VOMITING Trazodone HCl 150 mg 03/25/22 22:00 03/25/22 23:15 Trazodone Hcl 150 Mg Tablet PO 04/24/22 21:59 150 mg HS PENNY Administration Discontinued Medications Generic Name Dose Route Start Last Admin Trade Name Freq PRN Reason Stop Dose Admin Hydromorphone HCl 0.5 mg 03/25/22 20:32 03/26/22 06:08 Hydromorphone 1 Mg/1ml Inj 1 Mg/Ml Syringe IV 03/30/22 20:31 0.5 mg Q4H PRN PRN Administration PAIN Sodium Chloride 1,000 mls @ 999 mls/hr 03/25/22 15:54 03/25/22 17:17 Sodium Chloride 0.9% 1000 Ml IV 03/25/22 16:54 Infused .Q1H1M STA Infusion Sodium Chloride Confirm 03/25/22 16:06 Sodium Chloride 0.9% 1000 Ml Administered 03/25/22 16:07 Dose 1,000 mls @ ud .ROUTE .STK-MED ONE Piperacillin Sod/Tazobactam 100 mls @ 200 mls/hr 03/25/22 17:13 03/25/22 17:17 Sod 3.375 gm/ Sodium Chloride IV 03/25/22 17:42 200 mls/hr STAT ONE Administration Sodium Chloride Confirm 03/25/22 17:16 Sodium Chloride 100ml Mini-Bag Plus Administered 03/25/22 17:17 Dose 100 mls @ ud IV .STK-MED ONE Morphine Sulfate 2 mg 03/25/22 15:54 03/25/22 16:14 Morphine Sulfate 2 Mg/Ml Inj IV 03/25/22 15:55 2 mg STAT ONE Administration Morphine Sulfate Confirm 03/25/22 16:06 Morphine Sulfate 2 Mg/Ml Inj Administered 03/25/22 16:07 Dose 2 mg .ROUTE .STK-MED ONE Ondansetron HCl 4 mg 03/25/22 15:54 03/25/22 16:11 Ondansetron Hcl 4 Mg/2 Ml Vial IV 03/25/22 15:55 4 mg STAT ONE Administration Ondansetron HCl Confirm 03/25/22 16:06 Ondansetron Hcl 4 Mg/2 Ml Vial Administered 03/25/22 16:07 Dose 4 mg .ROUTE .STK-MED ONE Piperacillin Sod/Tazobactam Sod Confirm 03/25/22 17:16 Piperacillin/Tazobactam Sodium 3.375 Gm Vial Administered 03/25/22 17:17 Dose 3.375 gm IV .STK-MED ONE Intake & Output (Last 24 hours) 03/23/22 03/24/22 03/25/22 03/26/22 11:59 11:59 11:59 11:59 Intake Total 1197 Output Total 1100 Balance 97 Weight 95.8 kg Laboratory Results (Last 24 hours) 03/26/22 03/26/22 03/26/22 05:25 05:25 00:15 WBC 5.3 RBC 4.82 Hgb 14.5 Hct 43.1 MCV 89.4 MCH 30.1 MCHC 33.6 RDW 11.9 Plt Count 175 MPV 9.7 Gran % 69.2 H Immature Gran % (Auto) 0.2 Nucleat RBC Rel Count 0.0 Eos # (Auto) 0.16 Immature Gran # (Auto) 0.01 Absolute Lymphs (auto) 0.92 L Absolute Monos (auto) 0.51 Absolute Nucleated RBC 0.00 Lymphocytes % 17.4 L Monocytes % 9.6 Eosinophils % 3.0 Basophils % 0.6 Absolute Granulocytes 3.66 Basophils # 0.03 Sodium 137 Potassium 4.2 Chloride 104 Carbon Dioxide 29 Anion Gap 8.4 BUN 17 Creatinine 1.34 H Estimated GFR > 60.0 Glucose 95 Calcium 7.9 L Total Bilirubin 1.30 AST 16 L ALT 18 Alkaline Phosphatase 49 Troponin I < 0.012 Serum Total Protein 6.3 Albumin 3.5 Lipase Urinalys Dipstick Clnc Urine Color Urine Appearance Urine pH Ur Specific [place] POC Urine Protein Conf Urine Ketones Urine Nitrite Urine Bilirubin Urine Urobilinogen Urine Leukocytes Urine WBC (Auto) Urine RBC (Auto) U Epithel Cells (Auto) Urine Bacteria (Auto) Urine RBC Urine Mucus (Auto) Ur Culture Indicated? Urine Glucose Influenza Type A Ag Influenza Type B Ag RSV (PCR) SARS-CoV-2 (PCR) 03/25/22 03/25/22 03/25/22 Unknown 20:20 17:50 WBC RBC Hgb Hct MCV MCH MCHC RDW Plt Count MPV Gran % Immature Gran % (Auto) Nucleat RBC Rel Count Eos # (Auto) Immature Gran # (Auto) Absolute Lymphs (auto) Absolute Monos (auto) Absolute Nucleated RBC Lymphocytes % Monocytes % Eosinophils % Basophils % Absolute Granulocytes Basophils # Sodium Potassium Chloride Carbon Dioxide Anion Gap BUN Creatinine Estimated GFR Glucose Calcium Total Bilirubin AST ALT Alkaline Phosphatase Troponin I < 0.012 Serum Total Protein Albumin Lipase Urinalys Dipstick Clnc MAIN LAB Urine Color YELLOW Urine Appearance CLEAR Urine pH 6.0 Ur Specific [place] >=1.030 A POC Urine Protein Conf 30 A Urine Ketones NEGATIVE Urine Nitrite NEGATIVE Urine Bilirubin NEGATIVE Urine Urobilinogen 0.2 Urine Leukocytes NEGATIVE Urine WBC (Auto) 0-2 Urine RBC (Auto) 0-2 U Epithel Cells (Auto) NONE Urine Bacteria (Auto) NONE Urine RBC NEGATIVE Urine Mucus (Auto) SLIGHT A Ur Culture Indicated? NO Urine Glucose NEGATIVE Influenza Type A Ag NEGATIVE Influenza Type B Ag NEGATIVE RSV (PCR) NEGATIVE SARS-CoV-2 (PCR) NEGATIVE 03/25/22 03/25/22 03/25/22 16:02 16:02 16:02 WBC 7.9 RBC 5.04 Hgb 15.4 Hct 46.1 MCV 91.5 MCH 30.6 MCHC 33.4 RDW 11.8 Plt Count 202 MPV 9.6 Gran % 75.9 H Immature Gran % (Auto) 0.1 Nucleat RBC Rel Count 0.0 Eos # (Auto) 0.09 Immature Gran # (Auto) 0.01 Absolute Lymphs (auto) 1.06 Absolute Monos (auto) 0.70 Absolute Nucleated RBC 0.00 Lymphocytes % 13.4 L Monocytes % 8.9 Eosinophils % 1.1 Basophils % 0.6 Absolute Granulocytes 5.99 Basophils # 0.05 Sodium 136 L Potassium 3.8 Chloride 101 Carbon Dioxide 31 H Anion Gap 7.9 BUN 22 H Creatinine 1.35 H Estimated GFR > 60.0 Glucose 93 Calcium 8.9 Total Bilirubin 1.00 AST 22 ALT 22 Alkaline Phosphatase 62 Troponin I < 0.012 Serum Total Protein 7.5 Albumin 4.3 Lipase 324 H Urinalys Dipstick Clnc Urine Color Urine Appearance Urine pH Ur Specific [place] POC Urine Protein Conf Urine Ketones Urine Nitrite Urine Bilirubin Urine Urobilinogen Urine Leukocytes Urine WBC (Auto) Urine RBC (Auto) U Epithel Cells (Auto) Urine Bacteria (Auto) Urine RBC Urine Mucus (Auto) Ur Culture Indicated? Urine Glucose Influenza Type A Ag Influenza Type B Ag RSV (PCR) SARS-CoV-2 (PCR) Orders (Last 24 hours) Category Date Time Status Up With Assistance ROUTINE Activity 03/25/22 20:02 Active Code Status Order ROUTINE Care 03/25/22 20:02 Active IV Care Q6H Care 03/25/22 20:02 Active IV Insertion STAT Care 03/25/22 15:54 Completed Neuro Checks Q4H Care 03/25/22 20:[address] in Observation ROUTINE Care 03/25/22 20:02 Active Clear Liquid Diet 03/26/22 Breakfast Active ABDOMEN AND PELVIS W/0 CONTRAS [CT] Stat Exams 03/25/22 15:54 Completed CBC W DIFF AM.LAB Lab 03/26/22 05:25 Completed CBC W DIFF Stat Lab 03/25/22 16:02 Completed CMP AM.LAB Lab 03/26/22 05:25 Completed CMP Stat Lab 03/25/22 16:02 Completed COVID/FLU/RSV Panel Stat Lab 03/25/22 17:50 Completed LIPASE Stat Lab 03/25/22 16:02 Completed TROPONIN Q4H Lab 03/25/22 16:02 Completed TROPONIN Q4H Lab 03/25/22 20:20 Completed TROPONIN Q4H Lab 03/26/22 00:15 Completed Clonazepam [Klonopin] Med 03/25/22 22:00 Active 2 mg PO HS Hydromorphone 1 mg/1Ml Inj [Hydromorphone 1 mg/ml Med 03/25/22 20:32 Discontinued Injection] 0.5 mg IV Q4H PRN PRN Hydromorphone 1 mg/1Ml Inj [Hydromorphone 1 mg/ml Med 03/26/22 09:05 Active Injection] 1 mg IV Q4H PRN PRN Lisinopril 20 mg [Zestril 20 MG] Med 03/26/22 10:00 Active 40 mg PO DAILY Morphine Sulfate 2 mg Inj Med 03/25/22 16:06 Discontinued 2 mg .ROUTE .STK-MED ONE Morphine Sulfate 2 mg Inj Med 03/25/22 15:54 Discontinued 2 mg IV STAT ONE NaCl 0.9% 100 ml Mini-Bag Plus [Sodium Chloride 100ML Med 03/25/22 17:16 Discontinued MINI-BAG PLUS] 100 ml IV UD NaCl 0.9% 1000 ml [Sodium Chloride 0.9% 1000 ML] 1,000 Med 03/25/22 16:06 Discontinued ml .ROUTE UD NaCl 0.9% 1000 ml [Sodium Chloride 0.9% 1000 ML] 1,000 Med 03/25/22 20:02 Active ml IV 100 mls/hr NaCl 0.9% 1000 ml [Sodium Chloride 0.9% 1000 ML] 1,000 Med 03/25/22 15:54 Discontinued ml IV 999 mls/hr Ondansetron HCl 4 mg/2 ml [Zofran 4 MG/2 ML VIAL] Med 03/25/22 16:06 Discontinued 4 mg .ROUTE .STK-MED ONE Ondansetron HCl 4 mg/2 ml [Zofran 4 MG/2 ML VIAL] Med 03/25/22 20:32 Active 4 mg IV Q4H PRN PRN Ondansetron HCl 4 mg/2 ml [Zofran 4 MG/2 ML VIAL] Med 03/25/22 15:54 Discontinued 4 mg IV STAT ONE Piperacillin/Tazobactam 3.375G [Piperacillin/Tazobactam Med 03/25/22 17:16 Discontinued ] 3.375 gm IV .STK-MED ONE Piperacillin/Tazobactam 3.375G [Piperacillin/Tazobactam Med 03/25/22 20:02 Active ] 3.375 gm NaCl 0.9% 100 ml Mini-Bag Plus [Sodium Chloride 100ML MINI-BAG PLUS] 100 ml IV Q6HT Piperacillin/Tazobactam 3.375G [Piperacillin/Tazobactam Med 03/25/22 17:13 Discontinued ] 3.375 gm NaCl 0.9% 100 ml Mini-Bag Plus [Sodium Chloride 100ML MINI-BAG PLUS] 100 ml IV STAT Trazodone HCl 150 mg [Desyrel 150 MG] Med 03/25/22 22:00 Active 150 mg PO HS Code(s): K57.92 - DVTRCLI OF INTEST, PART UNSP, W/O PERF OR ABSCESS W/O BLEED (2) Acute renal injury Current Visit: Yes Status: Acute Code(s): N17.9 - ACUTE KIDNEY FAILURE, UNSPECIFIED (3) Hepatic cyst Current Visit: Yes Status: Acute Code(s): K76.89 - OTHER SPECIFIED DISEASES OF LIVER (4) Abdominal pain in male Current Visit: No Status: Acute Code(s): R10.9 - UNSPECIFIED ABDOMINAL PAIN
[2022-03-26] MEDS: Zofran 4 MG/2 ML VIAL IV PRN (23:48)
[2022-03-26] MEDS: Desyrel 150 MG PO SCH (23:48)
[2022-03-26] MEDS: KLONOPIN PO SCH (23:49)
[2022-03-27] MEDS: PIPERACILLIN/TAZOBACTAM 3.375 GM in Sodium Chloride 100ML MINI-BAG PLUS 100 ML IV SCH ×4 (05:06→23:43)
[2022-03-27] MEDS: Zofran 4 MG/2 ML VIAL IV PRN ×4 (07:51→21:07)
[2022-03-27] MEDS: Hydromorphone 1 mg/ml Injection IV PRN ×4 (07:51→21:07)
[2022-03-27] MEDS: Zestril 20 MG PO SCH (09:08)
[2022-03-27 09:11] LABS: Hemoglobin 14.4 g/dL (12.5-18.0); Mean Cell Volume 91.3 fL (78-100); Mean Corpuscular Hemoglobin 30.6 pg (26-32); Mean Corpuscular Hgb Concent. 33.5 g/dL (32-36); Mean Platelet Volume 9.4 fL (7.5-11.0); Platelet Count 196 x10^3/uL (150-450); Red Blood Count 4.71 x10^6/uL (4.1-5.6); Red Cell Distribution Width 11.7 % (11.5-14.0); White Blood Count 3.7 x10^3/uL (4.0-10.5)
[2022-03-27 09:25] LABS: ALBUMIN 3.6 g/dL (3.5-5.0); ALKALINE PHOSPHATASE 49 U/L (38-126); ANION GAP 7.2 MEQ/L (5-15); BLOOD UREA NITROGEN 15 mg/dL (9-20); CHLORIDE 105 mmol/L (98-107); Calcium 8.4 mg/dL (8.4-10.2); Carbon Dioxide 28 mmol/L (22-30); Creatinine 1 1.27 mg/dL (0.66-1.25); EST GLOMERULAR FILTRATION RATE > 60.0 ML/MIN; Glucose 119 mg/dL (74-106); MAGNESIUM 1.9 mg/dL (1.6-2.3); Potassium 4.1 mmol/L (3.5-5.1); SGOT/AST 16 U/L (17-59); SGPT/ALT 17 U/L (0-50); SODIUM 137 mmol/L (137-145); Total Protein 6.4 g/dL (6.3-8.2)
[2022-03-27] MEDS: Sodium Chloride 0.9% 1000 ML 1,000 ML IV SCH (21:06)
[2022-03-28] MEDS ORDERED: Hydromorphone 1 mg/ml Injection ONE ×4 (00:16→06:43)
[2022-03-28] MEDS: KLONOPIN PO SCH (00:20)
[2022-03-28] MEDS: Desyrel 150 MG PO SCH (00:20)
[2022-03-28] MEDS: Hydromorphone 1 mg/ml Injection IV PRN ×5 (00:21→11:49)
[2022-03-28] MEDS: Zofran 4 MG/2 ML VIAL IV PRN ×3 (04:48→20:42)
[2022-03-28] MEDS: PIPERACILLIN/TAZOBACTAM 3.375 GM in Sodium Chloride 100ML MINI-BAG PLUS 100 ML IV SCH ×4 (04:53→22:36)
--- NOTE | 2022-03-28 08:11 | PCM.NOTE ---
Date and Time: 03/27/22 0809 Late entry Subjective Assessment: still abdominal pain, unable to tolerate diet well - Review of Systems Constitutional: No Fever, No Chills Eyes: No Symptoms Ears, Nose, & Throat: No Symptoms Respiratory: No Cough, No Short Of Breath Cardiac: No Chest Pain, No Edema, No Syncope Abdominal/Gastrointestinal: Abdominal Pain, No Nausea, No Vomiting, No Diarrhea Genitourinary Symptoms: No Dysuria Musculoskeletal: No Back Pain, No Neck Pain Skin: No Rash Neurological: No Dizziness, No Focal Weakness, No Sensory Changes Psychological: No Symptoms Endocrine: No Symptoms Hematologic/Lymphatic: No Symptoms Immunological/Allergic: No Symptoms Objective Exam General Appearance: no apparent distress, alert Neurologic Exam: alert, oriented x 3, cooperative, normal mood/affect, nml cerebellar function, sensation nml, No motor deficits Skin Exam: normal color, warm, dry Eye Exam: PERRL, EOMI, eyes nml inspection Ears, Nose, Throat Exam: normal ENT inspection, pharynx normal, moist mucous membranes Neck Exam: normal inspection, non-tender, supple, full range of motion Respiratory Exam: normal breath sounds, lungs clear, No respiratory distress Cardiovascular Exam: regular rate/rhythm, normal heart sounds Gastrointestinal/Abdomen Exam: soft, tenderness, No mass Extremity Exam: normal inspection, normal range of motion Back Exam: normal inspection, normal range of motion, No CVA tenderness, No vertebral tenderness Male Genitalia Exam: deferred Rectal Exam: deferred OBJECTIVE DATA Vital Signs: Vital Signs - 24 hr Temp Pulse Resp BP Pulse Ox 03/28/22 07:22 97.3 F 66 16 135/74 92 L 03/28/22 00:00 97.3 F 78 19 148/94 97 03/27/22 19:47 97.5 F 84 19 157/97 99 03/27/22 16:00 98.4 F 66 16 124/69 97 03/27/22 12:00 97.5 F 76 16 140/87 97 Pain Assessment - Last Documented Pain Intensity 7 Pain Scale Used 0-10 Pain Scale Intake and Output: Intake & Output 03/25/22 03/26/22 03/27/22 03/28/22 11:59 11:59 11:59 11:59 Intake Total 1197 3533 2081 Output Total 1100 800 Balance 97 2733 2081 Weight 95.8 kg Lab Results: Lab Results-Last 24 Hours 03/27/22 03/27/22 Range/Units 09:01 09:01 WBC 3.7 L (4.0-10.5) x10^3/uL RBC 4.71 (4.1-5.6) x10^6/uL Hgb 14.4 (12.5-18.0) g/dL Hct 43.0 (42-50) % MCV 91.3 (78-100) fL MCH 30.6 (26-32) pg MCHC 33.5 (32-36) g/dL RDW 11.7 (11.5-14.0) % Plt Count 196 (150-450) x10^3/uL MPV 9.4 (7.5-11.0) fL Sodium 137 (137-145) mmol/L Potassium 4.1 (3.5-5.1) mmol/L Chloride 105 (98-107) mmol/L Carbon Dioxide 28 (22-30) mmol/L Anion Gap 7.2 (5-15) MEQ/L BUN 15 (9-20) mg/dL Creatinine 1.27 H (0.66-1.25) mg/dL Estimated GFR > 60.0 ML/MIN Glucose 119 H (74-106) mg/dL Calcium 8.4 (8.4-10.2) mg/dL Magnesium 1.9 (1.6-2.3) mg/dL Total Bilirubin 0.90 (0.2-1.3) mg/dL AST 16 L (17-59) U/L ALT 17 (0-50) U/L Alkaline Phosphatase 49 (38-126) U/L Serum Total Protein 6.4 (6.3-8.2) g/dL Albumin 3.6 (3.5-5.0) g/dL Radiology Exams: Radiology Procedures Category Date Time Status ABDOMEN AND PELVIS W/0 CONTRAS [CT] Routine Exams 03/28/22 08:00 Ordered Multi-Disciplinary Progress Notes: Multi-Disciplinary Progress Notes 03/27/22 11:29 Case Management Note by Alaina Shahid S/W PATIENT- HE CONTINUES TO DENY ANY NEW NEEDS AT TIME OF DC Initialized on 03/27/22 11:29 - END OF NOTE Assessment/Plan (1) Acute diverticulitis Current Visit: Yes Status: Acute Assessment & Plan: Last Vital Signs Temp 97.3 F 03/28/22 07:22 Pulse 66 03/28/22 07:22 Resp 16 03/28/22 07:22 BP 135/74 03/28/22 07:22 Pulse Ox 92 L 03/28/22 07:22 Allergies No Known Drug Allergies Allergy (Verified 03/25/22 20:19) Active Medications Clonazepam (Clonazepam 2 Mg Tablet) 2 mg PO HS PENNY Stop: 04/24/22 21:59 Last Admin: 03/28/22 00:20 Dose: 2 mg Hydromorphone HCl (Hydromorphone 1 Mg/1ml Inj 1 Mg/Ml Syringe) 1 mg IV Q2H PRN PRN PRN Reason: PAIN Stop: 04/02/22 06:43 Last Admin: 03/28/22 06:54 Dose: 1 mg Sodium Chloride (Sodium Chloride 0.9% 1000 Ml) 1,000 mls @ 100 mls/hr IV .Q10H PENNY Stop: 04/24/22 20:01 Last Admin: 03/27/22 21:06 Dose: 100 mls/hr Piperacillin Sod/Tazobactam (Sod 3.375 gm/ Sodium Chloride) 100 mls @ 200 mls/hr IV Q6HT PENNY Stop: 03/28/22 20:01 Last Admin: 03/28/22 04:53 Dose: 200 mls/hr Lisinopril (Lisinopril 20 Mg Tablet) 40 mg PO DAILY PENNY Stop: 04/25/22 09:59 Last Admin: 03/27/22 09:08 Dose: 40 mg Ondansetron HCl (Ondansetron Hcl 4 Mg/2 Ml Vial) 4 mg IV Q4H PRN PRN PRN Reason: NAUSEA/VOMITING Stop: 04/24/22 20:31 Last Admin: 03/28/22 04:48 Dose: 4 mg Trazodone HCl (Trazodone Hcl 150 Mg Tablet) 150 mg PO HS PENNY Stop: 04/24/22 21:59 Last Admin: 03/28/22 00:20 Dose: 150 mg Intake & Output 03/27/22 03/28/22 11:59 11:59 Intake Total 3533 2081 Output Total 800 Balance 2733 2081 Orders 03/27/22 Lunch Full Liquid Diet 03/28/22 08:00 ABDOMEN AND PELVIS W/0 CONTRAS [CT] Routine Lab Tests 03/27/22 03/27/22 09:01 09:01 WBC 3.7 L RBC 4.71 Hgb 14.4 Hct 43.0 MCV 91.3 MCH 30.6 MCHC 33.5 RDW 11.7 Plt Count 196 MPV 9.4 Sodium 137 Potassium 4.1 Chloride 105 Carbon Dioxide 28 Anion Gap 7.2 BUN 15 Creatinine 1.27 H Estimated GFR > 60.0 Glucose 119 H Calcium 8.4 Magnesium 1.9 Total Bilirubin 0.90 AST 16 L ALT 17 Alkaline Phosphatase 49 Serum Total Protein 6.4 Albumin 3.6 Code(s): K57.92 - DVTRCLI OF INTEST, PART UNSP, W/O PERF OR ABSCESS W/O BLEED (2) Acute renal injury Current Visit: Yes Status: Acute Code(s): N17.9 - ACUTE KIDNEY FAILURE, UNSPECIFIED (3) Hepatic cyst Current Visit: Yes Status: Acute Code(s): K76.89 - OTHER SPECIFIED DISEASES OF LIVER (4) Abdominal pain in male Current Visit: No Status: Acute Code(s): R10.9 - UNSPECIFIED ABDOMINAL PAIN
--- NOTE | 2022-03-28 09:08 | XRAY ---
Indication: Follow-up diverticulitis. Multiple contiguous images obtained through the abdomen and pelvis without contrast. Comparison: March 25, 2022 Lung bases again demonstrates dependent atelectasis. Heart is not enlarged. Noncontrasted stomach and bowel loops nonobstructed again with appendectomy and diffuse scattered colonic diverticulosis. Proximal sigmoid diverticulitis appears improved with mild residual. No free fluid/air. Stable polycystic kidneys, benign bilateral renal cortical calcifications, and multiple hepatic cysts. Remaining liver, gallbladder, pancreas, spleen, adrenal glands, kidneys, ureters, bladder, and aorta are unremarkable for noncontrast exam. Impression: 1. Again diffuse colonic diverticulosis with interval improving proximal sigmoid diverticulitis. No complications. 2. Again chronic findings including polycystic kidneys, benign bilateral renal calcifications, and hepatic cysts. 3. Remaining CT abdomen/pelvis without contrast exam is negative.
[2022-03-28] MEDS: Zestril 20 MG PO SCH (09:48)
[2022-03-28] MEDS: Sodium Chloride 0.9% 1000 ML 1,000 ML IV SCH ×2 (11:39→22:36)
[2022-03-28] MEDS ORDERED: DILAUDID 1 MG/1ML PCA SYRINGE IV PRN (13:25)
[2022-03-28 14:05] LABS: Hematocrit 44.3 % (42-50); Mean Cell Volume 90.8 fL (78-100); Mean Corpuscular Hemoglobin 30.7 pg (26-32); Mean Corpuscular Hgb Concent. 33.9 g/dL (32-36); Mean Platelet Volume 9.7 fL (7.5-11.0); Platelet Count 195 x10^3/uL (150-450); Red Blood Count 4.88 x10^6/uL (4.1-5.6); Red Cell Distribution Width 11.6 % (11.5-14.0); White Blood Count 3.5 x10^3/uL (4.0-10.5)
[2022-03-28 14:15] LABS: BLOOD UREA NITROGEN 12 mg/dL (9-20); CHLORIDE 99 mmol/L (98-107); Calcium 8.8 mg/dL (8.4-10.2); Carbon Dioxide 32 mmol/L (22-30); Creatinine 1 1.32 mg/dL (0.66-1.25); EST GLOMERULAR FILTRATION RATE > 60.0 ML/MIN; Glucose 89 mg/dL (74-106); LIPASE 57 U/L (23-300); Potassium 4.2 mmol/L (3.5-5.1); SODIUM 135 mmol/L (137-145)
[2022-03-29] MEDS: KLONOPIN PO SCH (04:05)
[2022-03-29] MEDS: Desyrel 150 MG PO SCH (04:05)
[2022-03-29] MEDS: PIPERACILLIN/TAZOBACTAM 3.375 GM in Sodium Chloride 100ML MINI-BAG PLUS 100 ML IV SCH (05:00)
[2022-03-29 07:51] VITALS: BP 111/70; PULSE 70
--- NOTE | 2022-03-29 08:17 | PCM.DS ---
Discharge Summary Date of Admission: 03/25/22 19:58 Admitting Physician: JAZZ MEHTA Primary Care Provider: BRANDIN MARTELL Allergies Allergies No Known Drug Allergies Allergy (Verified 03/25/22 20:19) Hospital Summary - Hospital Course Hospital Course: Chief Complaint Diagnosis abdominal pain for 2-3 days Allergies Allergy/AdvReac Type Severity Reaction Status Date / Time No Known Drug Allergies Allergy Verified 03/25/22 20:19 Vital Signs (Last 24 hours) Temp Pulse Resp BP Pulse Ox 03/29/22 07:50 97.8 F 70 17 111/70 96 03/29/22 04:00 98.4 F 68 18 115/66 96 03/28/22 23:40 97.1 F 72 18 147/89 97 03/28/22 19:39 97.8 F 76 19 131/79 99 03/28/22 16:00 97.5 F 60 16 139/84 96 03/28/22 13:42 18 98 03/28/22 11:11 97.5 F 73 16 183/99 96 Current Medications Generic Name Dose Route Start Last Admin Trade Name Freq PRN Reason Stop Dose Admin Clonazepam 2 mg 03/25/22 22:00 03/29/22 04:05 Clonazepam 2 Mg Tablet PO 04/24/22 21:59 Not Given HS PENNY Hydromorphone HCl 30 mg 03/28/22 13:25 03/28/22 13:42 Hydromorphone Hcl 30 Mg/30 Ml Syringe IV 04/02/22 13:24 30 mg UD PRN Administration PAIN Sodium Chloride 1,000 mls @ 100 mls/hr 03/25/22 20:02 03/28/22 22:36 Sodium Chloride 0.9% 1000 Ml IV 04/24/22 20:01 100 mls/hr .Q10H PENNY Administration Piperacillin Sod/Tazobactam 100 mls @ 200 mls/hr 03/25/22 20:02 03/29/22 05:00 Sod 3.375 gm/ Sodium Chloride IV 03/29/22 20:01 200 mls/hr Q6HT PENNY Administration Lisinopril 40 mg 03/26/22 10:00 03/28/22 09:48 Lisinopril 20 Mg Tablet PO 04/25/22 09:59 40 mg DAILY PENNY Administration Ondansetron HCl 4 mg 03/25/22 20:32 03/28/22 20:42 Ondansetron Hcl 4 Mg/2 Ml Vial IV 04/24/22 20:31 4 mg Q4H PRN PRN Administration NAUSEA/VOMITING Trazodone HCl 150 mg 03/25/22 22:00 03/29/22 04:05 Trazodone Hcl 150 Mg Tablet PO 04/24/22 21:59 Not Given HS PENNY Discontinued Medications Generic Name Dose Route Start Last Admin Trade Name Freq PRN Reason Stop Dose Admin Hydromorphone HCl 0.5 mg 03/25/22 20:32 03/26/22 06:08 Hydromorphone 1 Mg/1ml Inj 1 Mg/Ml Syringe IV 03/30/22 20:31 0.5 mg Q4H PRN PRN Administration PAIN Hydromorphone HCl 1 mg 03/26/22 09:05 03/27/22 21:07 Hydromorphone 1 Mg/1ml Inj 1 Mg/Ml Syringe IV 03/30/22 20:31 1 mg Q4H PRN PRN Administration PAIN Hydromorphone HCl 1 mg 03/28/22 09:05 03/28/22 04:49 Hydromorphone 1 Mg/1ml Inj 1 Mg/Ml Syringe IV 04/02/22 09:04 1 mg Q2H PRN Administration PAIN Hydromorphone HCl Confirm 03/28/22 00:16 Hydromorphone 1 Mg/1ml Inj 1 Mg/Ml Syringe Administered 03/28/22 00:17 Dose 1 mg .ROUTE .STK-MED ONE Hydromorphone HCl Confirm 03/28/22 02:33 Hydromorphone 1 Mg/1ml Inj 1 Mg/Ml Syringe Administered 03/28/22 02:34 Dose 1 mg .ROUTE .STK-MED ONE Hydromorphone HCl Confirm 03/28/22 04:47 Hydromorphone 1 Mg/1ml Inj 1 Mg/Ml Syringe Administered 03/28/22 04:48 Dose 1 mg .ROUTE .STK-MED ONE Hydromorphone HCl Confirm 03/28/22 06:43 Hydromorphone 1 Mg/1ml Inj 1 Mg/Ml Syringe Administered 03/28/22 06:44 Dose 1 mg .ROUTE .STK-MED ONE Hydromorphone HCl 1 mg 03/28/22 06:44 03/28/22 11:49 Hydromorphone 1 Mg/1ml Inj 1 Mg/Ml Syringe IV 04/02/22 06:43 1 mg Q2H PRN PRN Administration PAIN Sodium Chloride 1,000 mls @ 999 mls/hr 03/25/22 15:54 03/25/22 17:17 Sodium Chloride 0.9% 1000 Ml IV 03/25/22 16:54 Infused .Q1H1M STA Infusion Sodium Chloride Confirm 03/25/22 16:06 Sodium Chloride 0.9% 1000 Ml Administered 03/25/22 16:07 Dose 1,000 mls @ ud .ROUTE .STK-MED ONE Piperacillin Sod/Tazobactam 100 mls @ 200 mls/hr 03/25/22 17:13 03/25/22 17:17 Sod 3.375 gm/ Sodium Chloride IV 03/25/22 17:42 200 mls/hr STAT ONE Administration Sodium Chloride Confirm 03/25/22 17:16 Sodium Chloride 100ml Mini-Bag Plus Administered 03/25/22 17:17 Dose 100 mls @ ud IV .STK-MED ONE Morphine Sulfate 2 mg 03/25/22 15:54 03/25/22 16:14 Morphine Sulfate 2 Mg/Ml Inj IV 03/25/22 15:55 2 mg STAT ONE Administration Morphine Sulfate Confirm 03/25/22 16:06 Morphine Sulfate 2 Mg/Ml Inj Administered 03/25/22 16:07 Dose 2 mg .ROUTE .STK-MED ONE Ondansetron HCl 4 mg 03/25/22 15:54 03/25/22 16:11 Ondansetron Hcl 4 Mg/2 Ml Vial IV 03/25/22 15:55 4 mg STAT ONE Administration Ondansetron HCl Confirm 03/25/22 16:06 Ondansetron Hcl 4 Mg/2 Ml Vial Administered 03/25/22 16:07 Dose 4 mg .ROUTE .STK-MED ONE Piperacillin Sod/Tazobactam Sod Confirm 03/25/22 17:16 Piperacillin/Tazobactam Sodium 3.375 Gm Vial Administered 03/25/22 17:17 Dose 3.375 gm IV .STK-MED ONE Intake & Output (Last 24 hours) 03/26/22 03/27/22 03/28/22 03/29/22 11:59 11:59 11:59 11:59 Intake Total 1197 3533 2081 4304 Output Total 1100 800 Balance 97 2733 2081 4304 Weight 95.8 kg Laboratory Results (Last 24 hours) 03/28/22 03/28/22 13:55 13:55 WBC 3.5 L RBC 4.88 Hgb 15.0 Hct 44.3 MCV 90.8 MCH 30.7 MCHC 33.9 RDW 11.6 Plt Count 195 MPV 9.7 Sodium 135 L Potassium 4.2 Chloride 99 Carbon Dioxide 32 H Anion Gap 8.0 BUN 12 Creatinine 1.32 H Estimated GFR > 60.0 Glucose 89 Calcium 8.8 Lipase 57 Orders (Last 24 hours) Category Date Time Status [place] Diet Diet 03/28/22 Lunch Active Soft Diet Diet 03/28/22 Dinner Active ABDOMEN AND PELVIS W/0 CONTRAS [CT] Routine Exams 03/28/22 08:00 Completed BMP Urgent Lab 03/28/22 13:55 Completed CBC Urgent Lab 03/28/22 13:55 Completed LIPASE Urgent Lab 03/28/22 13:55 Completed Hydromorphone 1 mg/1Ml Inj [Hydromorphone 1 mg/ml Med 03/28/22 09:05 Discontinued Injection] 1 mg IV Q2H PRN Hydromorphone HCl 30 mg/30 ml* [Dilaudid 1 mg/1Ml FOUNDER / CEO Med 03/28/22 13:25 Active Syringe] 30 mg IV UD PRN Patient Care Notes (Last 24 hours) 03/28/22 19:35 Nursing Note by Michell De León Last night pt was rating pain 8 or 9 out of 10 within 2 hours after receiving IV dilaudid PRN. Pt described pain as sharp, gnawing, constant, and hunching him over. Talked with pt and decided to call dr and ask to increase frequency from every 4 hours to every [address] and received order to increase frequency from q4 to q2 prn. Initialized on 03/28/22 19:35 - END OF NOTE 03/28/22 15:47 Case Management Note by Alaina Shahid REVIEWED CHART- DO NOT ANTICIPATE ANY CHANGES IN DC PLANS AT THIS TIME Initialized on 03/28/22 15:47 - END OF NOTE - Vitals & Intake/Output Vital Signs: Vital Signs Temperature 97.8 F 03/29/22 07:50 Pulse Rate 70 03/29/22 07:50 Respiratory Rate 17 03/29/22 07:50 Blood Pressure 111/70 03/29/22 07:50 O2 Sat by Pulse Oximetry 96 03/29/22 07:50 Intake & Output: Intake & Output 03/26/22 03/27/22 03/28/22 03/29/22 11:59 11:59 11:59 11:59 Intake Total 1197 3533 2081 4304 Output Total 1100 800 Balance 97 2733 2081 4304 Weight 95.8 kg - Lab Result Diagrams: 03/28/22 13:55 03/28/22 13:55 Lab Results-Last 24 Hrs: Lab Results-Last 24 Hours 03/28/22 03/28/22 Range/Units 13:55 13:55 WBC 3.5 L (4.0-10.5) x10^3/uL RBC 4.88 (4.1-5.6) x10^6/uL Hgb 15.0 (12.5-18.0) g/dL Hct 44.3 (42-50) % MCV 90.8 (78-100) fL MCH 30.7 (26-32) pg MCHC 33.9 (32-36) g/dL RDW 11.6 (11.5-14.0) % Plt Count 195 (150-450) x10^3/uL MPV 9.7 (7.5-11.0) fL Sodium 135 L (137-145) mmol/L Potassium 4.2 (3.5-5.1) mmol/L Chloride 99 (98-107) mmol/L Carbon Dioxide 32 H (22-30) mmol/L Anion Gap 8.0 (5-15) MEQ/L BUN 12 (9-20) mg/dL Creatinine 1.32 H (0.66-1.25) mg/dL Estimated GFR > 60.0 ML/MIN Glucose 89 (74-106) mg/dL Calcium 8.8 (8.4-10.2) mg/dL Lipase 57 (23-300) U/L - Radiology Exams Ordered Rad Exams-Entire Visit: Radiology Procedures Category Date Time Status ABDOMEN AND PELVIS W/0 CONTRAS [CT] Routine Exams 03/28/22 08:00 Completed Discharge Exam General Appearance: no apparent distress, alert Neurologic Exam: alert, oriented x 3, cooperative, normal mood/affect, nml cerebellar function, sensation nml, No motor deficits Eye Exam: PERRL, EOMI, eyes nml inspection Ears, Nose, Throat Exam: normal ENT inspection, pharynx normal, moist mucous membranes Neck Exam: normal inspection, non-tender, supple, full range of motion Respiratory Exam: normal breath sounds, lungs clear, No respiratory distress Cardiovascular Exam: regular rate/rhythm, normal heart sounds Gastrointestinal/Abdomen Exam: soft, No tenderness, No mass Male Genitalia Exam: deferred Rectal Exam: deferred Back Exam: normal inspection, normal range of motion, No CVA tenderness, No vertebral tenderness Extremity Exam: normal inspection, normal range of motion Skin Exam: normal color, warm, dry Final Diagnosis/Problem List - Final Discharge Diagnosis/Problem (1) Acute diverticulitis Current Visit: Yes Status: Acute Assessment & Plan: Last Vital Signs Temp 97.8 F 03/29/22 07:50 Pulse 70 03/29/22 07:50 Resp 17 03/29/22 07:50 BP 111/70 03/29/22 07:50 Pulse Ox 96 03/29/22 07:50 Allergies No Known Drug Allergies Allergy (Verified 03/25/22 20:19) Active Medications Clonazepam (Clonazepam 2 Mg Tablet) 2 mg PO HS PENNY Stop: 04/24/22 21:59 Last Admin: 03/29/22 04:05 Dose: Not Given Hydromorphone HCl (Hydromorphone Hcl 30 Mg/30 Ml Syringe) 30 mg IV UD PRN PRN Reason: PAIN Stop: 04/02/22 13:24 Last Admin: 03/28/22 13:42 Dose: 30 mg Sodium Chloride (Sodium Chloride 0.9% 1000 Ml) 1,000 mls @ 100 mls/hr IV .Q10H PENNY Stop: 04/24/22 20:01 Last Admin: 03/28/22 22:36 Dose: 100 mls/hr Piperacillin Sod/Tazobactam (Sod 3.375 gm/ Sodium Chloride) 100 mls @ 200 mls/hr IV Q6HT PENNY Stop: 03/29/22 20:01 Last Admin: 03/29/22 05:00 Dose: 200 mls/hr Lisinopril (Lisinopril 20 Mg Tablet) 40 mg PO DAILY PENNY Stop: 04/25/22 09:59 Last Admin: 03/28/22 09:48 Dose: 40 mg Ondansetron HCl (Ondansetron Hcl 4 Mg/2 Ml Vial) 4 mg IV Q4H PRN PRN PRN Reason: NAUSEA/VOMITING Stop: 04/24/22 20:31 Last Admin: 03/28/22 20:42 Dose: 4 mg Trazodone HCl (Trazodone Hcl 150 Mg Tablet) 150 mg PO HS PENNY Stop: 04/24/22 21:59 Last Admin: 03/29/22 04:05 Dose: Not Given Intake & Output 03/28/22 03/29/22 11:59 11:59 Intake Total 1 4304 Balance 2081 4304 Orders 03/28/22 Lunch [place] Diet 03/28/22 13:25 Hydromorphone HCl 30 mg/30 ml* [Dilaudid 1 mg/1Ml FOUNDER / CEO Syringe] 30 mg IV UD PRN 03/28/22 Dinner Soft Diet Lab Tests 03/28/22 03/28/22 13:55 13:55 WBC 3.5 L RBC 4.88 Hgb 15.0 Hct 44.3 MCV 90.8 MCH 30.7 MCHC 33.9 RDW 11.6 Plt Count 195 MPV 9.7 Sodium 135 L Potassium 4.2 Chloride 99 Carbon Dioxide 32 H Anion Gap 8.0 BUN 12 Creatinine 1.32 H Estimated GFR > 60.0 Glucose 89 Calcium 8.8 Lipase 57 Code(s): K57.92 - DVTRCLI OF INTEST, PART UNSP, W/O PERF OR ABSCESS W/O BLEED (2) Acute renal injury Current Visit: Yes Status: Resolved Code(s): N17.9 - ACUTE KIDNEY FAILURE, UNSPECIFIED (3) Hepatic cyst Current Visit: Yes Status: Chronic Code(s): K76.89 - OTHER SPECIFIED DISEASES OF LIVER (4) Abdominal pain in male Current Visit: No Status: Resolved Code(s): R10.9 - UNSPECIFIED ABDOMINAL PAIN - Discharge Discharge Date: 03/29/22 Disposition: Home, Self-Care Condition: Stable Prescriptions: New Acetaminophen with Codeine [Acetaminophen-Cod #4 Tablet] 1 each PO Q4H PRN PRN #15 tablet PRN Reason: Severe Pain Metronidazole 500 mg [Flagyl 500 MG] 500 mg PO TID #15 tablet Continue Clonazepam [Klonopin] 2 mg PO HS Trazodone HCl 150 mg PO HS lisinopriL [Lisinopril] 40 mg PO DAILY Lactobacillus Combination No.4 [Probiotic] 1 each PO HS Instructions: Diverticulitis (DC) Additional Instructions: Discharge/Care Plan YESSI BLUE was discharged on 03/29/22 from hospital. The patient was counseled regarding Diagnosis,Lab results, Imaging studies, need for follow up and when to return to the Emergency Room. Prescriptions given: Discharge Note I have spoken with the patient and/or caregivers. I have explained the patient's condition, diagnosis and treatment plan based on the information available to me at this time. I have answered the patient's and/or caregiver's questions and addressed any concerns. The patient and/or caregivers have as good understanding of the patient's diagnosis, condition and treatment plan as can be expected at this point. The vital signs have been stable. The patient's condition is stable and appropriate for discharge from the emergency department. The patient will pursue further outpatient evaluation with the primary care physician or other designated or consulting physician as outlined in the d ischarge instructions. The patient and/or caregivers are agreeable to this plan of care and follow-up instructions have been explained in detail. The patient and/or caregivers have received these instruction. The patient/and or caregivers are aware that any significant change in condition or worsening of symptoms should prompt an immediate return to this or the closest emergency department or call 911. Follow up with: BRANDIN MARTELL NP [Primary Care Provider] - 5 Days
[2022-03-29] MEDS: Zestril 20 MG PO SCH (09:35)
[2022-03-29 10:04] VITALS: O2SAT 98
== END 2022-03-29 09:55 | disposition home or self-care (01) ==
LOC: ED 15:24 → MED SURG 19:58
PROVIDERS: ADMIT General Practice; ATTEND General Practice
DX: K57.92 Diverticulitis of intestine, part unspecified, without perforation or abscess without bleeding (principal); N17.9 Acute kidney failure, unspecified; K76.89 Other specified diseases of liver; R10.9 Unspecified abdominal pain; I10 Essential (primary) hypertension; Z79.899 Other long term (current) drug therapy; Z20.828 Contact with and (suspected) exposure to other viral communicable diseases; Z85.528 Personal history of other malignant neoplasm of kidney
CPT/HCPCS: 0241U; 36000; 36415; 74176; 80048; 80053; 81015; 83036; 83690; 83735; 84484; 85025; 85027; 96365; 96374; 96375; 99284; G0378; J1170; J2270; J2405; A9270-GY

== ENCOUNTER 2022-09-30 15:47 | Emergency (ER) | payer BC ==
[2022-09-30] MEDS ORDERED: Reglan 10 MG/2 ML IV ONE (15:55)
[2022-09-30] MEDS ORDERED: Sodium Chloride 0.9% 1000 ML 1,000 ML IV STA (15:55)
[2022-09-30] MEDS ORDERED: Hydromorphone 1 mg/ml Injection IV ONE (15:55)
[2022-09-30] MEDS ORDERED: PIPERACILLIN/TAZOBACTAM 4.5 GM in Sodium Chloride 100ML MINI-BAG PLUS 100 ML IV ONE (15:57)
--- NOTE | 2022-09-30 16:02 | ERPHSYRPT ---
- History of Present Illness Time Seen by Provider: 09/30/22 15:55 Historian: patient Exam Limitations: no limitations Patient Subjective Stated Complaint: PT states "I have diverticulitis, I think that might be what is going on. My back and belly hurt so bad." Triage Nursing Assessment: PT presented alert and oriented X 3, skin pwd. Pt ambulates with a slow gait, able to speak in clear full sentences pt has tenderness noted in left upper and lower quadrants. Physician History: Patient is a 41-year-old white male who has known diverticuli and diverticulitis x5 in the past. He is started with low back pain yesterday which migrated over the last first 24 hours to be in the lower abdomen especially on the left lower quadrant. Altogether has had 48 hours worth of pain. He has had an appendectomy. Timing/Duration: hour(s) (48) Activities at Onset: none Quality: cramping, stabbing Abdominal Pain Onset Location: LLQ Pain Radiation: LLQ Severity of Pain-Max: severe Severity of Pain-Current: severe Modifying Factors: Improves With: movement Associated Symptoms: back, loss of appetite, nausea Previous symptoms: same symptoms as today Allergies/Adverse Reactions: No Known Drug Allergies Allergy (Verified 03/25/22 20:19) Home Medications: Clonazepam [Klonopin] 2 mg PO HS 08/04/15 [History] Trazodone HCl 150 mg PO HS 08/20/15 [History] lisinopriL [Lisinopril] 40 mg PO DAILY 08/20/15 [History] Lactobacillus Combination No.4 [Probiotic] 1 each PO HS 09/27/19 [History] Hx Tetanus, Diphtheria Vaccination/Date Given: Yes Hx Influenza Vaccination/Date Given: No Hx Pneumococcal Vaccination/Date Given: No Immunizations Up to Date: Yes Travel Risk - International Travel Have you traveled outside of the country in past 3 weeks: No - Coronavirus Screening Are you exhibiting any of the following symptoms?: No Close contact with a COVID-19 positive Pt in past 14-21 Days: No - Vaccine Status Have you recieved a Covid-19 vaccination: Yes 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[employer] - Review of Systems Constitutional: No Fever, No Chills Eyes: No Symptoms Ears, Nose, & Throat: No Symptoms Respiratory: No Cough, No Dyspnea Cardiac: No Chest Pain, No Edema, No Syncope Abdominal/Gastrointestinal: Abdominal Pain, Nausea, No Vomiting, No Diarrhea Genitourinary Symptoms: No Dysuria Musculoskeletal: No Back Pain, No Neck Pain Skin: No Rash Neurological: No Dizziness, No Focal Weakness, No Sensory Changes Psychological: No Symptoms Endocrine: No Symptoms All Other Systems: Reviewed and Negative - Past Medical History Pertinent Past Medical History: Yes Neurological History: No Pertinent History ENT History: No Pertinent History Cardiac History: Hypertension Respiratory History: No Pertinent History Endocrine Medical History: No Pertinent History Musculoskeletal History: No Pertinent History GI Medical History: Diverticulitis, Hernia History: Kidney Cancer, Other Psycho-Social History: Anxiety, Depression Male Reproductive Disorders: No Pertinent History Other Medical History: blood in urine, scope 06/2015. polycystic kidney and liver disease. KIDNEY TUMOR. C-DIFF - Past Surgical History Past Surgical History: Yes Neuro Surgical History: No Pertinent History Cardiac: No Pertinent History Respiratory: No Pertinent History Gastrointestinal: Appendectomy, Hernia Repair Genitourinary: Other Musculoskeletal: Orthopedic Surgery Male Surgical History: No Pertinent History Other Surgical History: hand fx.right hand (no hdwe) hernia repair x 2, urinary scope with stent 2017 r/t polycystic kidney disease - Social History Smoking Status: Never smoker Exposure to second hand smoke: No Drug Use: none Patient Lives Alone: No Significant Family History: no pertinent family hx - Nursing Vital Signs Nursing Vital Signs: Initial Vital Signs Temperature 97.9 F 09/30/22 15:51 Pulse Rate 78 09/30/22 15:51 Respiratory Rate 20 09/30/22 15:51 Blood Pressure 154/106 09/30/22 15:51 O2 Sat by Pulse Oximetry 98 09/30/22 15:51 Pain Scale Pain Intensity 0 - Physical Exam General Appearance: no apparent distress, alert Eye Exam: PERRL/EOMI, eyes nml inspection Ears, Nose, Throat Exam: normal ENT inspection, pharynx normal, moist mucous membranes Neck Exam: normal inspection, non-tender, supple, full range of motion Respiratory Exam: normal breath sounds, lungs clear, No respiratory distress Cardiovascular Exam: regular rate/rhythm, normal heart sounds Gastrointestinal/Abdomen Exam: tenderness, guarding, rebound, No normal bowel sounds (Decreased bowel sounds), No mass Back Exam: normal inspection, normal range of motion, No CVA tenderness, No vertebral tenderness Extremity Exam: normal inspection, normal range of motion, pelvis stable Neurologic Exam: alert, oriented x 3, cooperative, normal mood/affect, nml cerebellar function, sensation nml, No motor deficits Skin Exam: normal color, warm, dry SpO2 Interpretation: normal SpO2: 98 O2 Delivery: Room Air - Course Nursing assessment & vital signs reviewed: Yes Ordered Tests: Active Orders 24 hr Category Date Time Status IV Insertion STAT Care 09/30/22 15:55 Active ABDOMEN AND PELVIS W CONTRAST [CT] Stat Exams 09/30/22 17:09 Taken AMYLASE Stat Lab 09/30/22 16:00 Completed CBC W DIFF Stat Lab 09/30/22 16:00 Completed CMP Stat Lab 09/30/22 16:00 Completed LIPASE Stat Lab 09/30/22 16:00 Completed Lactic Acid Stat Lab 09/30/22 16:10 Completed UA W/RFX UR CULTURE Stat Lab 09/30/22 15:55 Ordered Medication Summary Discontinued Medications Generic Name Dose Route Start Last Admin Trade Name Freq PRN Reason Stop Dose Admin Hydromorphone HCl 1 mg 09/30/22 15:55 09/30/22 16:12 Hydromorphone 1 Mg/1ml Inj IV 09/30/22 15:56 1 mg STAT ONE Administration Hydromorphone HCl Confirm 09/30/22 16:05 Hydromorphone 1 Mg/1ml Inj Administered 09/30/22 16:06 Dose 1 mg .ROUTE .STK-MED ONE Sodium Chloride 1,000 mls @ 999 mls/hr 09/30/22 15:55 09/30/22 17:19 Sodium Chloride 0.9% 1000 Ml IV 09/30/22 16:55 Infused .Q1H1M STA Infusion Piperacillin Sod/Tazobactam 100 mls @ 200 mls/hr 09/30/22 15:57 09/30/22 16:12 Sod 4.5 gm/ Sodium Chloride IV 09/30/22 16:26 200 mls/hr STAT ONE Administration Sodium Chloride Confirm 09/30/22 16:05 Sodium Chloride 0.9% 1000 Ml Administered 09/30/22 16:06 Dose 1,000 mls @ ud .ROUTE .STK-MED ONE Sodium Chloride Confirm 09/30/22 16:07 Sodium Chloride 100ml Mini-Bag Plus Administered 09/30/22 16:08 Dose 100 mls @ ud IV .STK-MED ONE Metoclopramide HCl 10 mg 09/30/22 15:55 09/30/22 16:11 Metoclopramide Hcl 10 Mg/2 Ml Vial IV 09/30/22 15:56 10 mg STAT ONE Administration Metoclopramide HCl Confirm 09/30/22 16:05 Metoclopramide Hcl 10 Mg/2 Ml Vial Administered 09/30/22 16:06 Dose 10 mg .ROUTE .STK-MED ONE Piperacillin Sod/Tazobactam Sod Confirm 09/30/22 16:05 Piperacillin/Tazobactam Sodium 4.5 Gm Vial Administered 09/30/22 16:06 Dose 4.5 gm IV .STK-MED ONE Lab/Rad Data: Laboratory Result Diagrams 09/30/22 16:00 09/30/22 16:00 Laboratory Results 09/30/22 09/30/22 09/30/22 Range/Units 16:10 16:00 16:00 WBC 4.6 (4.0-10.5) x10^3/uL RBC 5.29 (4.1-5.6) x10^6/uL Hgb 16.2 (12.5-18.0) g/dL Hct 46.6 (42-50) % MCV 88.1 (78-100) fL MCH 30.6 (26-32) pg MCHC 34.8 (32-36) g/dL RDW 11.4 L (11.5-14.0) % Plt Count 210 (150-450) x10^3/uL MPV 9.8 (7.5-11.0) fL Gran % 66.9 H (36.0-66.0) % Immature Gran % (Auto) 0.2 (0.00-0.4) % Nucleat RBC Rel Count 0.0 (0.00-0.1) % Eos # (Auto) 0.08 (0-0.5) x10^3/uL Immature Gran # (Auto) 0.01 (0.00-0.03) x10^3u/L Absolute Lymphs (auto) 1.05 (1.0-4.6) x10^3/uL Absolute Monos (auto) 0.33 (0.0-1.3) x10^3/uL Absolute Nucleated RBC 0.00 (0.00-0.01) x10^3u/L Lymphocytes % 22.9 L (24.0-44.0) % Monocytes % 7.2 (0.0-12.0) % Eosinophils % 1.7 (0.00-5.0) % Basophils % 1.1 (0.0-0.4) % Absolute Granulocytes 3.06 (1.4-6.9) x10^3/uL Basophils # 0.05 (0-0.4) x10^3/uL Sodium 138 (137-145) mmol/L Potassium 4.0 (3.5-5.1) mmol/L Chloride 102 (98-107) mmol/L Carbon Dioxide 26 (22-30) mmol/L Anion Gap 14.1 (5-15) MEQ/L BUN 25 H (9-20) mg/dL Creatinine 1.30 H (0.66-1.25) mg/dL Estimated GFR > 60.0 ML/MIN Glucose 100 (74-106) mg/dL Lactic Acid 0.8 (0.4-2.0) Calcium 9.5 (8.4-10.2) mg/dL Total Bilirubin 0.90 (0.2-1.3) mg/dL AST 26 (17-59) U/L ALT 25 (0-50) U/L Alkaline Phosphatase 60 (38-126) U/L Serum Total Protein 8.2 (6.3-8.2) g/dL Albumin 4.6 (3.5-5.0) g/dL Amylase 115 H (30-110) U/L Lipase 259 (23-300) U/L - Progress Progress: unchanged Medical Desision Making - Diagnostic Testing Diagnostic test were ordered, analyzed, and reviewed by me: Yes Radiological Interpretation: Reviewed by me - Risk of complications The pt has a mod risk of morbidity or mortality based on: Need for prescription drug management - Departure Departure Disposition: Home Clinical Impression: Diverticulitis, Polycystic kidney Condition: Fair Critical Care Time: No Referrals: BRANDIN MARTELL NP [Primary Care Provider] - Follow up/PCP as directed Instructions: Diverticulitis (DC) Prescriptions: Amox Tr/Potass Clav. 875 mg [Augmentin 875-125 Tablet] 875 mg PO BID 10 Days #20 tablet Metronidazole 500 mg [Flagyl 500 MG] 500 mg PO TID #21 tablet
[2022-09-30] MEDS ORDERED: Sodium Chloride 0.9% 1000 ML 1,000 ML ONE (16:05)
[2022-09-30] MEDS ORDERED: Reglan 10 MG/2 ML ONE (16:05)
[2022-09-30] MEDS ORDERED: PIPERACILLIN/TAZOBACTAM IV ONE (16:05)
[2022-09-30] MEDS ORDERED: Hydromorphone 1 mg/ml Injection ONE (16:05)
[2022-09-30] MEDS ORDERED: Sodium Chloride 100ML MINI-BAG PLUS 100 ML IV ONE (16:07)
[2022-09-30 16:13] LABS: Absolute Neutrophil Ct (ANC) 3.06 x10^3/uL (1.4-6.9); BASOPHIL % 1.1 % (0.0-0.4); Basophil (Absolute #) 0.05 x10^3/uL (0-0.4); Eosinophil % 1.7 % (0.00-5.0); Eosinophil (Absolute #) 0.08 x10^3/uL (0-0.5); Hematocrit 46.6 % (42-50); Hemoglobin 16.2 g/dL (12.5-18.0); IMMATURE GRAN # 0.01 x10^3u/L (0.00-0.03); IMMATURE GRAN % 0.2 % (0.00-0.4); Lymphocyte (Absolute #) 1.05 x10^3/uL (1.0-4.6); Lymphocytes % 22.9 % (24.0-44.0); Mean Cell Volume 88.1 fL (78-100); Mean Corpuscular Hemoglobin 30.6 pg (26-32); Mean Corpuscular Hgb Concent. 34.8 g/dL (32-36); Mean Platelet Volume 9.8 fL (7.5-11.0); Monocyte (Absolute #) 0.33 x10^3/uL (0.0-1.3); Monocytes % 7.2 % (0.0-12.0); Neutrophil % 66.9 % (36.0-66.0); Platelet Count 210 x10^3/uL (150-450); Red Blood Count 5.29 x10^6/uL (4.1-5.6); Red Cell Distribution Width 11.4 % (11.5-14.0); White Blood Count 4.6 x10^3/uL (4.0-10.5)
[2022-09-30 16:22] LABS: ALBUMIN 4.6 g/dL (3.5-5.0); ALKALINE PHOSPHATASE 60 U/L (38-126); AMYLASE 115 U/L (30-110); ANION GAP 14.1 MEQ/L (5-15); BLOOD UREA NITROGEN 25 mg/dL (9-20); CHLORIDE 102 mmol/L (98-107); Calcium 9.5 mg/dL (8.4-10.2); Carbon Dioxide 26 mmol/L (22-30); EST GLOMERULAR FILTRATION RATE > 60.0 ML/MIN; Glucose 100 mg/dL (74-106); LIPASE 259 U/L (23-300); SGOT/AST 26 U/L (17-59); SGPT/ALT 25 U/L (0-50); SODIUM 138 mmol/L (137-145); Total Protein 8.2 g/dL (6.3-8.2)
[2022-09-30 18:39] VITALS: BP 129/92; PULSE 79
[2022-09-30] MEDS ORDERED: Augmentin 875-125 Tablet PO ONE (18:40)
[2022-09-30 18:41] VITALS: O2SAT 98
[2022-09-30] MEDS ORDERED: Flagyl 500 MG PO ONE (18:41)
[2022-09-30] MEDS ORDERED: Augmentin 875-125 Tablet ONE (18:44)
[2022-09-30] MEDS ORDERED: Flagyl 500 MG ONE (18:44)
--- NOTE | 2022-10-01 08:27 | XRAY ---
Indication: Left lower quadrant pain. Multiple contiguous axial images obtained through the abdomen and pelvis using 80 cc Isovue 370 contrast. Comparison: March 28, 2022 Lung bases clear. Heart not enlarged. Noncontrasted stomach and bowel loops appear nonobstructed again with appendectomy. Diffuse scattered colonic diverticulosis without diverticulitis. No free fluid/air. Stable polycystic kidneys, bilateral renal cortical calcifications, and multiple hepatic cysts. Remaining liver, gallbladder, pancreas, spleen, adrenal glands, kidneys, ureters, bladder, and aorta are unremarkable. No pathologic retroperitoneal lymphadenopathy. Osseous structures intact. Impression: 1. Again diffuse colonic diverticulosis, polycystic kidneys, benign bilateral renal calcifications, and hepatic cysts. 2. Remaining CT abdomen/pelvis with contrast exam is negative.
== END 2022-09-30 18:52 | disposition home or self-care (01) ==
LOC: ED 15:47
DX: K57.92 Diverticulitis of intestine, part unspecified, without perforation or abscess without bleeding (principal); Q61.3 Polycystic kidney, unspecified; R10.32 Left lower quadrant pain; I10 Essential (primary) hypertension; Z79.899 Other long term (current) drug therapy
CPT/HCPCS: 36000; 36415; 74177; 80053; 82150; 83605; 83690; 85025; 96365; 96374; 96375; 99284; J1170; J2543; A9270-GY

== ENCOUNTER 2023-07-30 02:24 | Emergency (ER) | payer OTHER ==
[2023-07-30 02:34] VITALS: RESP 18; TEMP 98.2
[2023-07-30 02:55] VITALS: O2SAT 97
--- NOTE | 2023-07-30 02:55 | ERPHSYRPT ---
- History of Present Illness Time Seen by Provider: 07/30/23 02:45 Source: patient Exam Limitations: no limitations Patient Subjective Stated Complaint: woke up with dried blood on my face, bicep, arm and was concerned. I didn't sleep well, I was burping when I went to bed. Triage Nursing Assessment: Pt ambulated into ER without diff. Pt alert and oriented x4. Pt c/o not sleeping well this night and woke up at 1am with dried blood on his face, bicep and arm and got concerned. Pt c/o some indigestion. Abd soft with hyperactive bs x4 quad, nontender on palpation. Pt c/o some diarrhea, denies any dark or black stools. Physician History: 42-year-old male presents to our emergency department for evaluation. Patient states he woke up with dried blood on his face and on his bicep. No active bleeding at this time. Patient states it was difficult for him to sleep. He feels some indigestion. No abdominal pain. No nausea no vomiting no rash. Patient states he has been having some loose stools but stools are not dark or tarry. Patient otherwise feels well. He has no pain no weakness no shortness of breath. Patient is currently asymptomatic. Patient is not taking any blood thinners. Patient otherwise feels well. He voices no other complaints or concerns at this time. Portions of this note were created with voice recognition technology. There may be grammatical, spelling, punctuation or sound alike errors Timing/Duration: today Severity: mild Modifying Factors: Improves With: nothing Associated Symptoms: denies symptoms Allergies/Adverse Reactions: No Known Drug Allergies Allergy (Verified 07/30/23 02:47) Home Medications: Clonazepam [Klonopin] 2 mg PO HS 08/04/15 [History] Trazodone HCl 150 mg PO HS 08/20/15 [History] lisinopriL [Lisinopril] 40 mg PO DAILY 08/20/15 [History] Lactobacillus Combination No.4 [Probiotic] 1 each PO HS 09/27/19 [History] Hx Tetanus, Diphtheria Vaccination/Date Given: Yes Hx Influenza Vaccination/Date Given: No Hx Pneumococcal Vaccination/Date Given: No Immunizations Up to Date: No Travel Risk - International Travel Have you traveled outside of the country in past 3 weeks: No - Coronavirus Screening Are you exhibiting any of the following symptoms?: No Close contact with a COVID-19 positive Pt in past 14-21 Days: No - Vaccine Status Have you recieved a Covid-19 vaccination: Yes 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[employer] - Review of Systems Constitutional: No Symptoms, No Fever, No Chills Eyes: No Symptoms Ears, Nose, & Throat: No Symptoms Respiratory: No Symptoms, No Cough, No Dyspnea Cardiac: No Symptoms, No Chest Pain, No Edema, No Syncope Abdominal/Gastrointestinal: No Symptoms, No Abdominal Pain, No Nausea, No Vomiting, No Diarrhea Genitourinary Symptoms: No Symptoms, No Dysuria Musculoskeletal: No Symptoms, No Back Pain, No Neck Pain Skin: No Symptoms, No Rash Neurological: No Symptoms, No Dizziness, No Focal Weakness, No Sensory Changes Psychological: No Symptoms Endocrine: No Symptoms Hematologic/Lymphatic: No Symptoms Immunological/Allergic: No Symptoms All Other Systems: Reviewed and Negative - Past Medical History Pertinent Past Medical History: Yes Neurological History: No Pertinent History ENT History: No Pertinent History Cardiac History: Hypertension Respiratory History: No Pertinent History Endocrine Medical History: No Pertinent History Musculoskeletal History: No Pertinent History GI Medical History: Diverticulitis, Hernia History: Kidney Cancer, Other Psycho-Social History: Anxiety, Depression Male Reproductive Disorders: No Pertinent History Other Medical History: blood in urine, scope 06/2015. polycystic kidney and liver disease. KIDNEY TUMOR. C-DIFF - Past Surgical History Past Surgical History: Yes Neuro Surgical History: No Pertinent History Cardiac: No Pertinent History Respiratory: No Pertinent History Gastrointestinal: Appendectomy, Hernia Repair Genitourinary: Other Musculoskeletal: Orthopedic Surgery Male Surgical History: No Pertinent History Other Surgical History: hand fx.right hand (no hdwe) hernia repair x 2, urinary scope with stent 2016 r/t polycystic kidney disease Significant Family History: no pertinent family hx - Social History Smoking Status: Never smoker Exposure to second hand smoke: No Drug Use: none Patient Lives Alone: No - Nursing Vital Signs Nursing Vital Signs: Initial Vital Signs Temperature 98.2 F 07/30/23 02:33 Pulse Rate 74 07/30/23 02:33 Respiratory Rate 18 07/30/23 02:33 Blood Pressure 148/102 07/30/23 02:33 O2 Sat by Pulse Oximetry 97 07/30/23 02:33 Pain Scale Pain Intensity 6 - Physical Exam General Appearance: no apparent distress, alert Eye Exam: PERRL/EOMI, eyes nml inspection Ears, Nose, Throat Exam: normal ENT inspection, TMs normal, pharynx normal, moist mucous membranes Neck Exam: normal inspection, non-tender, supple, full range of motion Respiratory Exam: normal breath sounds, lungs clear, No respiratory distress Cardiovascular Exam: regular rate/rhythm, normal heart sounds, normal peripheral pulses Gastrointestinal/Abdomen Exam: soft, normal bowel sounds, No tenderness, No mass Back Exam: normal inspection, normal range of motion, No CVA tenderness, No vertebral tenderness Extremity Exam: normal inspection, normal range of motion, pelvis stable Neurologic Exam: alert, oriented x 3, cooperative, normal mood/affect, nml cerebellar function, nml station & gait, sensation nml, No motor deficits Skin Exam: normal color, warm, dry, No rash Lymphatic Exam: No adenopathy SpO2 Interpretation: normal SpO2: 97 O2 Delivery: Room Air - Course Nursing assessment & vital signs reviewed: Yes Ordered Tests: Active Orders 24 hr Category Date Time Status Field Coil Winder STAT Care 07/30/23 02:44 Active IV Insertion STAT Care 07/30/23 02:44 Active Pulse Oximetry (ED) STAT Care 07/30/23 02:44 Active CBC W DIFF Stat Lab 07/30/23 02:54 Completed CMP Stat Lab 07/30/23 02:54 Completed TROPONIN Q4H Lab 07/30/23 02:54 Completed TROPONIN Q4H Lab 07/30/23 06:45 Ordered TROPONIN Q4H Lab 07/30/23 10:45 Ordered Lab/Rad Data: Laboratory Result Diagrams 07/30/23 02:54 07/30/23 02:54 Laboratory Results 07/30/23 07/30/23 07/30/23 Range/Units 02:54 02:54 02:54 WBC 4.7 (4.0-10.5) x10^3/uL RBC 5.43 (4.1-5.6) x10^6/uL Hgb 16.7 (12.5-18.0) g/dL Hct 49.2 (42-50) % MCV 90.6 (78-100) fL MCH 30.8 (26-32) pg MCHC 33.9 (32-36) g/dL RDW 11.9 (11.5-14.0) % Plt Count 193 (150-450) x10^3/uL MPV 10.0 (7.5-11.0) fL Gran % 53.1 (36.0-66.0) % Immature Gran % (Auto) 0.4 (0.00-0.4) % Nucleat RBC Rel Count 0.0 (0.00-0.1) % Eos # (Auto) 0.21 (0-0.5) x10^3/uL Immature Gran # (Auto) 0.02 (0.00-0.03) x10^3u/L Absolute Lymphs (auto) 1.43 (1.0-4.6) x10^3/uL Absolute Monos (auto) 0.46 (0.0-1.3) x10^3/uL Absolute Nucleated RBC 0.00 (0.00-0.01) x10^3u/L Lymphocytes % 30.8 (24.0-44.0) % Monocytes % 9.9 (0.0-12.0) % Eosinophils % 4.5 (0.00-5.0) % Basophils % 1.3 (0.0-0.4) % Absolute Granulocytes 2.47 (1.4-6.9) x10^3/uL Basophils # 0.06 (0-0.4) x10^3/uL Sodium 138 (135-145) mmol/L Potassium 4.1 (3.5-5.1) mmol/L Chloride 105 (98-107) mmol/L Carbon Dioxide 23 (22-30) mmol/L Anion Gap 14.6 (5-15) MEQ/L BUN 17 (9-20) mg/dL Creatinine 1.33 H (0.66-1.25) mg/dL Estimated GFR 67.6 ML/MIN Glucose 102 (74-106) mg/dL Calcium 9.2 (8.4-10.2) mg/dL Total Bilirubin 0.80 (0.2-1.3) mg/dL AST 27 (17-59) U/L ALT 33 (0-50) U/L Alkaline Phosphatase 65 (38-126) U/L Troponin I < 0.012 (0.000-0.034) ng/mL Serum Total Protein 7.6 (6.3-8.2) g/dL Albumin 4.2 (3.5-5.0) g/dL - Progress Progress: improved Progress Note: 42-year-old male presents to our ED for evaluation as he observed dried blood upon awakening this morning. Physical exam nonremarkable. Laboratory workup nonremarkable. We do not have a source at this point. We suspect possibly GI. We advised patient to follow-up with primary care doctor for an EGD and a colonoscopy as he has not had one recently. Troponin negative. Hemoglobin within normal limits. Vitals stable. Patient asymptomatic. Will discharge home. Patient agrees to follow-up with his primary care doctor within 48 hours for evaluation. He voices no other complaints or concerns at this time. Portions of this note were created with voice recognition technology. There may be grammatical, spelling, punctuation or sound alike errors Complexity problem addressed is moderate acute complicated No critical care time Complaints of data reviewed and analyzed is moderate. Test ordered test reviewed. Results analyzed and correlated clinically with history and physical exam. Risk of complication and or risk of morbidity/mortality of patient management is low Vital stable. Time spent to discharge patient is approximately 20 minutes. Plan of care established for shared decision making. No social determinants of health present impede follow-up. Portions of this note were created with voice recognition technology. There may be grammatical, spelling, punctuation or sound alike errors 07/30/23 03:33 Counseled pt/family regarding: lab results, diagnosis, need for follow-up - Departure Departure Disposition: Home Clinical Impression: Encounter for medical screening examination Condition: Stable Critical Care Time: No Referrals: BRANDIN MARTELL NP [Primary Care Provider] - Follow up/PCP as directed Additional Instructions: Discharge/Care Plan YESSI BLUE was seen on 07/30/23 in the Emergency Room. The patient was counseled regarding Diagnosis,Lab results, Imaging studies, need for follow up and when to return to the Emergency Room. Prescriptions given: Discharge Note I have spoken with the patient and/or caregivers. I have explained the patient's condition, diagnosis and treatment plan based on the information available to me at this time. I have answered the patient's and/or caregiver's questions and addressed any concerns. The patient and/or caregivers have as good understanding of the patient's diagnosis, condition and treatment plan as can be expected at this point. The vital signs have been stable. The patient's condition is stable and appropriate for discharge from the emergency department. The patient will pursue further outpatient evaluation with the primary care physician or other designated or consulting physician as outlined in the discharge instructions. The patient and/or caregivers are agreeable to this plan of care and follow-up instructions have been explained in detail. The patient and/or caregivers have received these instruction. The patient/and or caregivers are aware that any significant change in condition or worsening of symptoms should prompt an immediate return to this or the closest emergency department or call 911.
[2023-07-30 02:56] LABS: Absolute Neutrophil Ct (ANC) 2.47 x10^3/uL (1.4-6.9); BASOPHIL % 1.3 % (0.0-0.4); Basophil (Absolute #) 0.06 x10^3/uL (0-0.4); Eosinophil % 4.5 % (0.00-5.0); Eosinophil (Absolute #) 0.21 x10^3/uL (0-0.5); Hematocrit 49.2 % (42-50); Hemoglobin 16.7 g/dL (12.5-18.0); IMMATURE GRAN # 0.02 x10^3u/L (0.00-0.03); IMMATURE GRAN % 0.4 % (0.00-0.4); Lymphocyte (Absolute #) 1.43 x10^3/uL (1.0-4.6); Lymphocytes % 30.8 % (24.0-44.0); Mean Cell Volume 90.6 fL (78-100); Mean Corpuscular Hemoglobin 30.8 pg (26-32); Mean Corpuscular Hgb Concent. 33.9 g/dL (32-36); Monocyte (Absolute #) 0.46 x10^3/uL (0.0-1.3); Monocytes % 9.9 % (0.0-12.0); Neutrophil % 53.1 % (36.0-66.0); Platelet Count 193 x10^3/uL (150-450); Red Blood Count 5.43 x10^6/uL (4.1-5.6); Red Cell Distribution Width 11.9 % (11.5-14.0); White Blood Count 4.7 x10^3/uL (4.0-10.5)
[2023-07-30 03:10] LABS: ALBUMIN 4.2 g/dL (3.5-5.0); ANION GAP 14.6 MEQ/L (5-15); BILIRUBIN,TOTAL 0.8 mg/dL (0.2-1.3); Calcium 9.2 mg/dL (8.4-10.2); Creatinine 1 1.33 mg/dL (0.66-1.25); EST GLOMERULAR FILTRATION RATE 67.6 ML/MIN; Potassium 4.1 mmol/L (3.5-5.1); Total Protein 7.6 g/dL (6.3-8.2)
[2023-07-30 03:40] VITALS: BP 129/100; PULSE 76
== END 2023-07-30 03:46 | disposition home or self-care (01) ==
LOC: ED 02:24
DX: Z71.1 Person with feared health complaint in whom no diagnosis is made (principal); R79.89 Other specified abnormal findings of blood chemistry; R10.9 Unspecified abdominal pain; I10 Essential (primary) hypertension; Z79.899 Other long term (current) drug therapy
CPT/HCPCS: 36000; 36415; 80053; 84484; 85025; 93041; 94760; 99283

== ENCOUNTER 2023-08-01 05:51 | Day surgery (SDC) | payer OTHER ==
[2023-08-01 06:05] VITALS: RESP 18
[2023-08-01] MEDS: Lactated Ringers 1,000 ML IV SCH (06:41)
[2023-08-01] MEDS ORDERED: Xylocaine-Mpf 2% 5 Ml Vial ONE (07:24)
[2023-08-01] MEDS ORDERED: DIPRIVAN 200 MG/20 ML IV ONE ×2 (07:24→08:23)
[2023-08-01] MEDS ORDERED: Versed 2 MG/2 ML Injection ONE (07:24)
[2023-08-01 08:15] VITALS: TEMP 97.8; O2SAT 98
[2023-08-01 08:24] VITALS: BP 140/88; PULSE 67
--- NOTE | 2023-08-01 09:18 | OP ---
SURGERY DATE/TIME: 08/01/2023 0734 PREOPERATIVE DIAGNOSIS: Hematemesis. POSTOPERATIVE DIAGNOSIS: Moderate gastritis and Zamora's esophagus. PROCEDURE: Esophagogastroduodenoscopy with cold forceps biopsy. SURGEON: Dr. Hanks. ANESTHESIA: Medications were given by the anesthesia department. BRIEF HISTORY: The patient is a 42-year-old white male patient who reports he awoke one morning with blood on his face, arm and pillow. The patient had reported he takes Aleve occasionally for headache issues. The patient has had no black tarry stools or blood in the stools. The patient was felt the need to have endoscopic evaluation. He was appraised of the risks of the procedure including the risk of perforation, phlebitis, untoward reaction to medication and sore throat. The patient verbalized his understanding and desired to have the procedure performed. DESCRIPTION OF PROCEDURE: The patient was given the medications by the anesthesia department. He had continuous pulse oximetry, ECG monitoring and intermittent blood pressure monitoring during the examination. He was placed in the left lateral decubitus position. A bite block was placed and the flexible Olympus gastroscope was used to intubate the oropharynx. A view of the esophagus appeared to be normal in the upper third and the lower third however appeared to have areas that were concerning for the possibility of Zamora's esophagus and these were biopsied using cold biopsy technique. The stomach was entered where normal gastric rugal folds were seen and these distended nicely with insufflation of air. The gastric batres was suctioned dry and the stomach was re-insufflated. The scope was passed along the greater curvature of the stomach to the antrum, which appeared to be erythematous. No erosions or ulcerations however were noted. No active bleeding. The scope was passed through the pylorus. The duodenum appeared to be essentially normal. The scope is withdrawn towards the stomach and retroflex view was obtained of the lesser curvature, fundus and cardia regions of the stomach and these appeared to be essentially normal. The scope was then redirected towards the gastric antrum and biopsies were obtained from the gastric antrum to rule out the presence of Helicobacter pylori-type organisms. The scope was then removed from the patient who tolerated the procedure well and was sent back to outpatient recovery in good condition.
== END 2023-08-01 08:39 | disposition home or self-care (01) ==
LOC: SDC 05:51
PROVIDERS: ATTEND Family Medicine
DX: K29.70 Gastritis, unspecified, without bleeding (principal); K92.0 Hematemesis; K22.70 Barrett's esophagus without dysplasia
CPT/HCPCS: J2250; J2704